=== PATIENT | female | born 1950 | race Caucasian/White ===

== ENCOUNTER → 2017-03-30 | Outpatient (CLI) | payer OTHER ==
[~2017-03-30] MED LIST: ASCA500 PO; CALC-20 PO; DICL-201 PO; GLUCCAP5 PO; LEVO100T PO; LOSA1TAB38 PO; MAGNTAB4 PO; MULTTAB PO; OMEP40CA PO; VITA400C15 PO
== END | disposition home or self-care (01) ==
LOC: C.PAPS 15:26
PROVIDERS: ATTEND Obstetrics & Gynecology
DX: Z01.419 Encounter for gynecological examination (general) (routine) without abnormal findings (principal)

== ENCOUNTER → 2017-04-04 | Outpatient (CLI) | payer OTHER ==
--- NOTE | 2017-04-05 07:54 | MAMMOGRAPHY REPORT ---
BILATERAL DIGITAL SCREENING MAMMOGRAM WITH CAD: 04/04/2017 CLINICAL HISTORY: Routine screening. Patient has no complaints. TECHNIQUE: Bilateral CC and MLO views were obtained. Current study was also evaluated with a Compute r Aided Detection (CAD) system. COMPARISON: Comparison is made to exams dated: 03/17/2015 mammogram, 04/03/2013 mammogram, 02/02/2011 ma mmogram, 11/18/2009 mammogram - [facility], 11/16/2008, and 08/29/2007. BREAST COMPOSITION: There are scattered areas of fibroglandular density in both breasts. FINDINGS: There are benign-appearing punctate microcalcifications in the left breast, and benign-shante earing coarse calcifications in the right breast. No new suspicious mass, architectural distortion o r cluster of microcalcifications is seen. IMPRESSION: ACR BI-RADS CATEGORY 1: NEGATIVE There is no mammographic evidence of malignancy. A 1 year screening mammogram is recommended. The pa tient will receive written notification of the results. Approximately 10% of breast cancers are not detected with mammography. A negative mammographic report should not delay biopsy if a clinically suggestive mass is present. Clementina Esposito M.D. ay/:04/04/2017 16:51:27 Certified Medical Coder: Jennifer Hager, [facility] letter sent: Normal 1/2 BI-RADS Code: ACR BI-RADS Category 1: Negative
== END | disposition home or self-care (01) ==
LOC: C.MAMM 16:24
PROVIDERS: ATTEND Obstetrics & Gynecology
DX: Z12.31 Encounter for screening mammogram for malignant neoplasm of breast (principal)

== ENCOUNTER 2017-12-24 09:29 | Emergency (ER) | payer OTHER ==
[~2017-12-24] VITALS: Ht 149.9 cm; Wt 80.0 kg
[2017-12-24 09:34] VITALS: TEMP 36.7; Ht 149.9 cm; Wt 80.0 kg
[2017-12-24] MEDS ORDERED: MoRPHine SULFATE 4 MG/ML 1 ML CARP\\VIAL IV STA (10:08)
[2017-12-24] MEDS ORDERED: SODIUM CHLORIDE 0.9% 1000ML 1,000 ML IV STA (10:08)
[2017-12-24] MEDS ORDERED: ONDANSETRON INJ 2 MG/ML 2 ML VIAL IV STA (10:08)
[2017-12-24] MEDS ORDERED: GLUC15009 PO (10:22)
[2017-12-24] MEDS ORDERED: OMEP-334 PO (10:22)
[2017-12-24] MEDS ORDERED: BNC/20 PO (10:22)
[2017-12-24] MEDS ORDERED: VITA400C28 PO (10:22)
[2017-12-24] MEDS ORDERED: SLWMEC PO (10:22)
[2017-12-24 10:39] LABS: BASO % 0.3 %; BASO ABS # 0.02 K/uL (0-0.2); EOS % 2.2 %; EOS ABS # 0.15 K/uL (0-0.5); HEMATOCRIT 39.9 % (37-47); HEMOGLOBIN 13.1 g/dL (12.0-16.0); IG# 0.01 K/uL (0.00-0.02); LYMPH % 14.3 %; LYMPH ABS # 0.99 K/uL (1.2-3.4); MEAN CELL VOLUME 88.7 fL (80-100); MEAN CORPUSCULAR HEMOGLOBIN 29.1 pg (25-34); MEAN CORPUSCULAR HGB CONC 32.8 g/dl (32-36); MEAN PLATELET VOLUME 8.6 fL (7.4-10.4); MONO % 7.8 %; MONO ABS # 0.54 K/uL (0.11-0.59); NEUT % 75.3 %; PLATELET COUNT 297 K/uL (130-400); RED CELL DISTRIBUTION WIDTH CV 14.8 % (11.5-14.5); RED CELL DISTRIBUTION WIDTH SD 47.7 fL (36.4-46.3); WHITE BLOOD COUNT 6.91 K/uL (4.8-10.8)
--- NOTE | 2017-12-24 10:56 | EMERGENCY ROOM VISIT NOTE ---
History Report prepared by Awa: Kaylin Mays Under the Supervision of: Dr. Tita Sanchez M.D. 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 She states that sitting in the car typically aggravates her back pain. Last night she put a heating pad on her back before bed. She was feeling fine when she went to sleep. The patient states that when she woke up this morning she did not have any pain. She went downstairs and was in the kitchen when she developed a sudden onset of right sided flank pain radiating into her lower back and into her RLQ. She denies any pain radiating into her leg or groin. She felt nauseated and lightheaded with her pain. The patient reports worsening pain in her back with deep inspiration. Her pain is worsened with movement. The patient rates her current pain as an 8/ 10 in severity. The patient denies shortness of breath, urinary symptoms, and pain or swelling in her legs. She denies any history of kidney stones or blood clots. She still has her gallbladder. She has not eaten anything today. 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 A total of 10 systems reviewed and were otherwise negative. Past Medical & Surgical Medical Problems: (1) Acid reflux (2) Arthritis (3) Elbow dislocation (4) Elbow fracture, left (5) HTN (hypertension) Family History Patient reports no known family medical history. Social History Smoking Status: Never Smoker Marital Status: Housing Status: lives with family Current/Historical Medications Scheduled Ascorbic Acid (Vitamin C), 500 MG PO DAILY Calcium Carbonate-Vitamin D (Calcium 600 + D), 1 TABS PO DAILY Diclofenac (Voltaren), 75 MG PO BID Glucosamine Hydrochloride (Glucosamine), 1,500 MG PO DAILY Levothyroxine Sodium (Synthroid), 100 MCG PO DAILY Magnesium Chloride (Slow-Mag Tab), 64 MG PO DAILY Multivitamins/Minerals (Mvi With Minerals), 1 TAB PO DAILY Olmesartan Medoxomil (Benicar), 20 MG PO DAILY Omeprazole (Omeprazole Dr), 40 MG PO QPM Vitamin E (Alph-E), 400 UNITS PO DAILY Scheduled PRN Hydrocodone/Acetaminophen 5MG/325MG (Melcroft 5MG/325MG), 1 TABLET PO Q6 PRN for Pain Allergies Coded Allergies: Benazepril (Verified Allergy, Unknown, UNKNOWN, 12/24/17) CAUSES COUGH Lisinopril (Verified Allergy, Unknown, UNKNOWN, 12/24/17) CAUSES COUGH Sulfa Drugs (Verified Allergy, Unknown, 12/24/17) Physical Exam Vital Signs Date Time Temp Pulse Resp B/P (MAP) Pulse Ox O2 Delivery O2 Flow Rate FiO2 12/24/17 14:43 54 136/74 97 12/24/17 13:24 53 140/67 97 Nasal Cannula 2.0 12/24/17 12:55 95 Nasal Cannula 2.0 12/24/17 12:49 53 12/24/17 12:45 Room Air 12/24/17 12:45 59 126/61 93 Room Air 12/24/17 11:07 59 121/60 93 Room Air 12/24/17 09:34 36.7 67 16 178/89 99 Room Air Physical Exam Vital signs reviewed. General: Well-appearing elderly female, in no significant distress. HEENT: No scleral icterus, PERRLA, neck supple. Atraumatic. Cardiovascular: Regular rate and rhythm, no extra sounds. Pulmonary: Clear to auscultation bilaterally, normal work of breathing. Abdomen: Soft, mild tenderness to palpation to RUQ, obese, non-tender to palpation to the thoracolumbar spine. Mild right CVA tenderness, pain with deep inspiration. Musculoskeletal: Atraumatic, no peripheral edema. Neurologic: Patient awake alert and oriented x 3, full strength in all 4 extremities. Cranial nerves 2 through 12 grossly intact. Skin: Warm, dry, no rash Medical Decision & Procedures ER Provider Diagnostic Interpretation: Radiology results as stated below per my review and radiologist interpretation: CT SCAN OF THE ABDOMEN AND PELVIS WITHOUT CONTRAST CLINICAL HISTORY: R flank pain COMPARISON STUDY: Biliary ultrasound dated 12/24/2017 TECHNIQUE: CT scan of the abdomen and pelvis was performed from the lung bases to the proximal femurs. Images are reviewed in the axial, sagittal, and coronal planes. IV contrast was not administered for this examination. A dose lowering technique was utilized adhering to the principles of ALARA. CT DOSE: 536.73 mGy.cm FINDINGS: Lower chest: There is a moderate hiatal hernia. Liver: The unenhanced liver is normal in size, contour, and attenuation. There is no intrahepatic biliary ductal dilatation. Gallbladder: Unremarkable. Spleen: Normal in size and attenuation. Pancreas: Unremarkable. Adrenal glands: Unremarkable. Kidneys: There is 18 mm right renal hypodensity which slightly exceeds water attenuation and is therefore indeterminate. No renal calculi are visualized. No ureteral or bladder calculi are visualized. Bowel: There are no transition zones indicate bowel obstruction. There is no evidence of acute diverticulitis. By history the appendix is surgically absent. Peritoneum: There is no intraperitoneal free air or abdominal ascites. There is a small fat-containing right inguinal hernia. Vasculature: The abdominal aorta is normal in course and caliber. Adenopathy: None. Pelvic viscera: The bladder, and pelvic viscera are unremarkable. Skeletal structures: No destructive osseous lesions are seen. IMPRESSION: 1. Moderate hiatal hernia 2. No renal, ureteral, or bladder calculi identified 3. No evidence of bowel obstruction. No evidence of free air 4. Fat-containing right inguinal hernia 5. 18 mm right renal hypodensity. This slightly exceeds water attenuation and is therefore indeterminate. Electronically signed by: Arsalan Kaminski M.D. 12/24/2017 12:13 PM Dictated Date/Time: 12/24/2017 12:06 PM BILIARY ULTRASOUND CLINICAL HISTORY: RUQ pain COMPARISON STUDY: No previous studies for comparison. FINDINGS: The pancreas appears normal as visualized. No hepatic masses are visualized. There is no ductal dilatation. The gallbladder appears sonographically normal. The common bile duct measures 2 mm. There is no right-sided hydronephrosis. IMPRESSION: Normal biliary ultrasound. Electronically signed by: Arsalan Kaminsik M.D. 12/24/2017 12:05 PM Dictated Date/Time: 12/24/2017 12:04 PM CHEST ONE VIEW PORTABLE CLINICAL HISTORY: R flank pain w breathing pain. Nausea. COMPARISON STUDY: 08/22/2010 FINDINGS: Mild stable cardia megaly. Fixed hiatal hernia. Lungs are clear. Diaphragms are smooth. IMPRESSION: Fixed hiatal hernia. Study is otherwise negative. The above report was generated using voice recognition software. It may contain grammatical, syntax or spelling errors. Electronically signed by: Musa Ann M.D. 12/24/2017 2:00 PM Dictated Date/Time: 12/24/2017 1:[address] DOSE: HISTORY: radiculopathy right flank, spine recons please TECHNIQUE: Multiaxial CT images of the lumbar spine were performed and reformatted in the sagittal and coronal plane without the use of contrast. A dose lowering technique was utilized adhering to the principles of ALARA. COMPARISON: Abdomen and pelvis CT 12/24/2017. FINDINGS: No fractures. There is 5 mm of anterolisthesis of L4 and L5. Severe disc space narrowing at L4-L5 and L2-L3. Mild disc space narrowing at L3-L4. Moderate facet osteoarthritis within the lower lumbar spine most pronounced at the L4-L5 level. Moderate central canal narrowing at L4-L5. Small Tarlov cysts at S2. Mild levoscoliosis of the lumbar spine. Paraspinal soft tissues are unremarkable. The sacrum is intact. IMPRESSION: 1. No fractures within the lumbar spine. 2. Degenerative changes as described above most pronounced at the L4-L5 level where there is moderate central canal narrowing. 3. Grade I anterolisthesis of L4 on L5. 4. Mild levoscoliosis. Electronically signed by: Chito Noel M.D. 12/24/2017 1:52 PM Dictated Date/Time: 12/24/2017 1:47 PM Laboratory Results 12/24/17 10:26 Red Blood Count 4.50, Mean Corpuscular Volume 88.7, Mean Corpuscular Hemoglobin 29.1, Mean Corpuscular Hemoglobin Concent 32.8, Mean Platelet Volume 8.6, Neutrophils (%) (Auto) 75.3, Lymphocytes (%) (Auto) 14.3, Monocytes (%) (Auto) 7.8, Eosinophils (%) (Auto) 2.2, Basophils (%) (Auto) 0.3, Neutrophils # (Auto) 5.20, Lymphocytes # (Auto) 0.99, Monocytes # (Auto) 0.54, Eosinophils # (Auto) 0.15, Basophils # (Auto) 0.02 12/24/17 10:26 Test 12/24/17 10:26 12/24/17 10:30 12/24/17 11:30 White Blood Count 6.91 K/uL (4.8-10.8) Red Blood Count 4.50 M/uL (4.2-5.4) Hemoglobin 13.1 g/dL (12.0-16.0) Hematocrit 39.9 % (37-47) Mean Corpuscular Volume 88.7 fL (80-100) Mean Corpuscular Hemoglobin 29.1 pg (25-34) Mean Corpuscular Hemoglobin Concent 32.8 g/dl (32-36) Platelet Count 297 K/uL (130-400) Mean Platelet Volume 8.6 fL (7.4-10.4) Neutrophils (%) (Auto) 75.3 % Lymphocytes (%) (Auto) 14.3 % Monocytes (%) (Auto) 7.8 % Eosinophils (%) (Auto) 2.2 % Basophils (%) (Auto) 0.3 % Neutrophils # (Auto) 5.20 K/uL (1.4-6.5) Lymphocytes # (Auto) 0.99 K/uL (1.2-3.4) Monocytes # (Auto) 0.54 K/uL (0.11-0.59) Eosinophils # (Auto) 0.15 K/uL (0-0.5) Basophils # (Auto) 0.02 K/uL (0-0.2) RDW Standard Deviation 47.7 fL (36.4-46.3) RDW Coefficient of Variation 14.8 % (11.5-14.5) Immature Granulocyte % (Auto) 0.1 % Immature Granulocyte # (Auto) 0.01 K/uL (0.00-0.02) Anion Gap 5.0 mmol/L (3-11) Est Creatinine Clear Calc Drug Dose 62.5 ml/min Estimated GFR () 87.7 Estimated GFR (Non- 75.7 BUN/Creatinine Ratio 26.1 (10-20) Calcium Level 8.1 mg/dl (8.5-10.1) Total Bilirubin 0.3 mg/dl (0.2-1) Direct Bilirubin < 0.1 mg/dl (0-0.2) Aspartate Amino Transf (AST/SGOT) 19 U/L (15-37) Alanine Aminotransferase (ALT/SGPT) 38 U/L (12-78) Alkaline Phosphatase 60 U/L (45-117) Total Protein 6.1 gm/dl (6.4-8.2) Albumin 3.4 gm/dl (3.4-5.0) D-Dimer 360 ug/L FEU (0-500) Urine Color YELLOW Urine Appearance CLEAR (CLEAR) Urine pH 6.0 (4.5-7.5) Urine Specific [place] 1.023 (1.000-1.030) Urine Protein NEG (NEG) Urine Glucose (UA) NEG (NEG) Urine Ketones NEG (NEG) Urine Occult Blood NEG (NEG) Urine Nitrite NEG (NEG) Urine Bilirubin NEG (NEG) Urine Urobilinogen NEG (NEG) Urine Leukocyte Esterase MODERATE (NEG) Urine WBC (Auto) 5-10 /hpf (0-5) Urine RBC (Auto) 0-4 /hpf (0-4) Urine Hyaline Casts (Auto) 1-5 /lpf (0-5) Urine Epithelial Cells (Auto) 20-30 /lpf (0-5) Urine Bacteria (Auto) NEG (NEG) Laboratory results per my review. Medications Administered Medications (Trade) Dose Ordered Sig/Ange Route Start Time Stop Time Status Last Admin Dose Admin Morphine Sulfate (MoRPHine SULFATE INJ) 4 mg NOW STAT IV 12/24/17 10:08 12/24/17 10:10 DC 12/24/17 10:28 4 MG Ondansetron HCl (Zofran Inj) 4 mg NOW STAT IV 12/24/17 10:08 12/24/17 10:10 DC 12/24/17 10:28 4 MG Sodium Chloride 1,000 ml @ 999 mls/hr Q1H1M STAT IV 12/24/17 10:08 12/24/17 11:08 DC 12/24/17 10:29 999 MLS/HR Ketorolac Tromethamine (Toradol Inj) 30 mg NOW STAT IV 12/24/17 13:16 12/24/17 13:18 DC 12/24/17 13:23 30 MG ED Course 0959: Past medical records reviewed. The patient was evaluated in room A4B. A complete history and physical examination was performed. 1008: NSS 1000 ml @ 999 mls/hr IV, Zofran 4 mg IV, Morphine sulfate 4 mg IV 1315: I updated the patient. Her pain has improved but still waxes and wanes. 1316: Toradol 30 mg IV 1417: I reassessed the patient at this time. She is feeling better and resting comfortably. I discussed the results and treatment plan with the patient. I answered all pertaining questions that she had. She expressed understanding and verbalized agreement. The patient will be discharged home. Medical Decision Differential diagnosis: Etiologies such as renal colic, appendicitis, diverticulitis, mesenteric ischemia, aortic pathology, infections, inflammatory bowel disease, PUD, biliary pathology, UTI, as well as others were entertained. This patient was evaluated and appeared to be in some discomfort. IV access was obtained and laboratory work was drawn. The patient was placed on the potline monitor and found to be in a normal sinus rhythm. She was given IV morphine and Zofran for her discomfort. IV fluids were initiated. CT scan abdomen and pelvis was performed and reveals no evidence of obstructive uropathy. There is no other acute inflammatory finding of the abdomen or pelvis. Urinalysis was obtained and is negative. Chest x-ray was obtained and is negative, laboratory work including a d-dimer is fairly unrevealing. Ultrasound right upper quadrant was performed and is negative for acute cholecystitis. The patient was reevaluated and continued to complain of significant pain with movement of the right flank. Lumbar spine reconstructions were ordered from the CT scan abdomen and pelvis performed earlier today. This study is read as above, significant for L2-L3 and L4-L5 disc space narrowing. The patient's level would be consistent with the L2-L3 posterior dermatome. At this time I find no other etiology for the patient's pain. She was advised of the findings. She was advised to use ibuprofen every 6 hours as needed for pain with food. She was given a prescription for Melcroft to be used as needed for more severe pain. She will follow-up with her physician for reevaluation and return to the ER for worsening of symptoms or any medical concerns. Medication Reconcilliation Current Medication List: was personally reviewed by me Blood Pressure Screening Patient's blood pressure: Normal blood pressure Impression Primary Impression: Radiculopathy of thoracolumbar region Scribe Attestation The scribe's documentation has been prepared under my direction and personally reviewed by me in its entirety. I confirm that the note above accurately reflects all work, treatment, procedures, and medical decision making performed by me. Departure Information Dispostion Home / Self-Care Prescriptions Hydrocodone/Acetaminophen 5MG/325MG (Melcroft 5MG/325MG) Tab 1 TABLET PO Q6 Y for Pain, #20 TAB Prov: Tita Sanchez M.D. 12/24/17 Referrals No Doctor, Assigned (PCP) Stef Salmon III, M.D. Forms HOME CARE DOCUMENTATION FORM, IMPORTANT VISIT INFORMATION Patient Instructions My [facility] Additional Instructions Diagnosis: Thoracolumbar radiculopathy Ibuprofen 600 mg every 6 hours as needed for pain with food. Melcroft 1 tab every 6 hours as needed for more severe pain. Do not drive or take Tylenol with this medication. Warm compresses and gentle stretching. Contact your primary care physician for follow-up within the next week. Return to the emergency department for increased pain, fevers, change in symptoms or any medical concerns.
[2017-12-24 10:57] LABS: ALBUMIN 3.4 gm/dl (3.4-5.0); ALT/SGPT 38 U/L (12-78); AST/SGOT 19 U/L (15-37); BLOOD UREA NITROGEN 21 mg/dl (7-18); CALCIUM 8.1 mg/dl (8.5-10.1); CARBON DIOXIDE 26 mmol/L (21-32); CREATININE 0.81 mg/dl (0.60-1.20); GLUCOSE 107 mg/dl (70-99); POTASSIUM 4.1 mmol/L (3.5-5.1); SODIUM 142 mmol/L (136-145)
[2017-12-24 11:00] LABS: ALKALINE PHOSPHATASE 60 U/L (45-117); TOTAL PROTEIN 6.1 gm/dl (6.4-8.2)
--- NOTE | 2017-12-24 12:06 | DIAGNOSTIC IMAGING REPORT ---
BILIARY ULTRASOUND CLINICAL HISTORY: RUQ pain COMPARISON STUDY: No previous studies for comparison. FINDINGS: The pancreas appears normal as visualized. No hepatic masses are visualized. There is no ductal dilatation. The gallbladder appears sonographically normal. The common bile duct measures 2 mm. There is no right-sided hydronephrosis. IMPRESSION: Normal biliary ultrasound. Electronically signed by: Arsalan Kaminski M.D. 12/24/2017 12:05 PM Dictated Date/Time: 12/24/2017 12:04 PM
--- NOTE | 2017-12-24 12:14 | DIAGNOSTIC IMAGING REPORT ---
CT SCAN OF THE ABDOMEN AND PELVIS WITHOUT CONTRAST CLINICAL HISTORY: R flank pain COMPARISON STUDY: Biliary ultrasound dated 12/24/2017 TECHNIQUE: CT scan of the abdomen and pelvis was performed from the lung bases to the proximal femurs. Images are reviewed in the axial, sagittal, and coronal planes. IV contrast was not administered for this examination. A dose lowering technique was utilized adhering to the principles of ALARA. CT DOSE: 536.73 mGy.cm FINDINGS: Lower chest: There is a moderate hiatal hernia. Liver: The unenhanced liver is normal in size, contour, and attenuation. There is no intrahepatic biliary ductal dilatation. Gallbladder: Unremarkable. Spleen: Normal in size and attenuation. Pancreas: Unremarkable. Adrenal glands: Unremarkable. Kidneys: There is 18 mm right renal hypodensity which slightly exceeds water attenuation and is therefore indeterminate. No renal calculi are visualized. No ureteral or bladder calculi are visualized. Bowel: There are no transition zones indicate bowel obstruction. There is no evidence of acute diverticulitis. By history the appendix is surgically absent. Peritoneum: There is no intraperitoneal free air or abdominal ascites. There is a small fat-containing right inguinal hernia. Vasculature: The abdominal aorta is normal in course and caliber. Adenopathy: None. Pelvic viscera: The bladder, and pelvic viscera are unremarkable. Skeletal structures: No destructive osseous lesions are seen. IMPRESSION: 1. Moderate hiatal hernia 2. No renal, ureteral, or bladder calculi identified 3. No evidence of bowel obstruction. No evidence of free air 4. Fat-containing right inguinal hernia 5. 18 mm right renal hypodensity. This slightly exceeds water attenuation and is therefore indeterminate. Electronically signed by: Arsalan Kaminski M.D. 12/24/2017 12:13 PM Dictated Date/Time: 12/24/2017 12:06 PM
[2017-12-24 12:55] VITALS: O2SAT 95
[2017-12-24] MEDS ORDERED: KETOROLAC TROMETHAMINE 30 MG/ML VIAL IV STA (13:16)
--- NOTE | 2017-12-24 13:54 | DIAGNOSTIC IMAGING REPORT ---
LUMBAR SPINE CT CT DOSE: HISTORY: radiculopathy right flank, spine recons please TECHNIQUE: Multiaxial CT images of the lumbar spine were performed and reformatted in the sagittal and coronal plane without the use of contrast. A dose lowering technique was utilized adhering to the principles of ALARA. COMPARISON: Abdomen and pelvis CT 12/24/2017. FINDINGS: No fractures. There is 5 mm of anterolisthesis of L4 and L5. Severe disc space narrowing at L4-L5 and L2-L3. Mild disc space narrowing at L3-L4. Moderate facet osteoarthritis within the lower lumbar spine most pronounced at the L4-L5 level. Moderate central canal narrowing at L4-L5. Small Tarlov cysts at S2. Mild levoscoliosis of the lumbar spine. Paraspinal soft tissues are unremarkable. The sacrum is intact. IMPRESSION: 1. No fractures within the lumbar spine. 2. Degenerative changes as described above most pronounced at the L4-L5 level where there is moderate central canal narrowing. 3. Grade I anterolisthesis of L4 on L5. 4. Mild levoscoliosis. Electronically signed by: Chito Noel M.D. 12/24/2017 1:52 PM Dictated Date/Time: 12/24/2017 1:47 PM
--- NOTE | 2017-12-24 14:01 | DIAGNOSTIC IMAGING REPORT ---
CHEST ONE VIEW PORTABLE CLINICAL HISTORY: R flank pain w breathing pain. Nausea. COMPARISON STUDY: 08/22/2010 FINDINGS: Mild stable cardia megaly. Fixed hiatal hernia. Lungs are clear. Diaphragms are smooth. IMPRESSION: Fixed hiatal hernia. Study is otherwise negative. The above report was generated using voice recognition software. It may contain grammatical, syntax or spelling errors. Electronically signed by: Musa Ann M.D. 12/24/2017 2:00 PM Dictated Date/Time: 12/24/2017 1:59 PM
[2017-12-24] MEDS ORDERED: HYDR-5688 PO (14:09)
[2017-12-24 14:43] VITALS: BP 136/74; PULSE 54; O2SAT 97
== END 2017-12-24 14:44 | disposition home or self-care (01) ==
LOC: EDBD 09:29 → C.EDA 09:30
DX: R10.9 Unspecified abdominal pain (principal); M54.15 Radiculopathy, thoracolumbar region; R11.0 Nausea; I10 Essential (primary) hypertension; K21.9 Gastro-esophageal reflux disease without esophagitis; Z79.899 Other long term (current) drug therapy; Z88.8 Allergy status to other drugs, medicaments and biological substances; K44.9 Diaphragmatic hernia without obstruction or gangrene

== ENCOUNTER 2021-11-15 15:07 | Inpatient (IN) ==
--- NOTE | 2021-11-15 15:50 | XRay Report ---
XR chest 1V portable CLINICAL HISTORY: SOB. COMPARISON STUDY: 12/24/2017 TECHNIQUE: 1 view of the chest FINDINGS: Single frontal view of the chest demonstrates the cardiomediastinal silhouette to be within normal li mits. The lungs are clear of alveolar opacities. There is no evidence for pleural effusion. There is no evidence for vascular congestion. There is no acute osseous pathology. IMPRESSION: 1. No acute cardiopulmonary disease. ACT 112: Negative or not required by law. Electronically signed by: Luis M Harley M.D. 11/15/2021 3:49 PM
--- NOTE | 2021-11-15 15:57 | Electrocardiogram Report ---
Test Reason : Blood Pressure : / mmHG Vent. Rate : 086 BPM Atrial Rate : 086 BPM P-R Int : 174 ms QRS Dur : 088 ms QT Int : 362 ms P-R-T Axes : 033 037 029 degrees QTc Int : 433 ms Normal sinus rhythm Normal ECG When compared with ECG of 22-AUG-2010 17:29, No significant change was found Confirmed by Kareem Johnson ([id number]) on 11/15/2021 3:57:28 PM Referred By: Confirmed By:Kareem Johnson
[2021-11-15] MEDS ORDERED: SODIUM CHLORIDE 0.9% 500 ML IV ONE (16:01)
[2021-11-15 16:27] LABS: Basophils # (auto) 0.05 K/uL (0-0.2); Basophils % (auto) 0.8 %; Eosinophils # (auto) 0.18 K/uL (0-0.5); Eosinophils % (auto) 2.7 %; Hemoglobin 7.1 g/dL (12.0-16.0); Immature Granulocytes # (auto) 0.02 K/uL (0.00-0.02); Immature Granulocytes % (auto) 0.3 %; Lymphocytes # (auto) 1.53 K/uL (1.2-3.4); Lymphocytes % (auto) 23.2 %; Mean Corpuscular Hemoglobin 21.1 pg (25-34); Mean Corpuscular Hgb Conc 29.6 g/dL (32-36); Mean Corpuscular Volume 71.2 fL (80-100); Mean Platelet Volume 7.8 fL (7.4-10.4); Monocytes % (auto) 10.6 %; Neutrophils # (auto) 4.12 K/uL (1.4-6.5); Neutrophils % (auto) 62.4 %; Platelet Count 730 K/uL (130-400); RDW Coefficient of Variation 17.5 % (11.5-14.5); RDW Standard Deviation 45.6 fL (36.4-46.3); Red Blood Count 3.37 M/uL (4.2-5.4); Reticulocyte % 1.8 % (0.5-2.0); Reticulocytes # 0.06 10^6/uL (0.02-0.10)
[2021-11-15 16:35] LABS: Partial Thromboplastin Ratio 0.8; Partial Thromboplastin Time 21.9 Seconds (21.0-31.0); Prothrombin Time 10.3 Seconds (9.0-12.0)
[2021-11-15 16:45] LABS: Hypochromasia Present; Polychromasia 1+
[2021-11-15 16:49] LABS: Alanine Aminotransferase 26 U/L (7-52); Albumin Globulin Ratio 1.8 (0.9-2); Albumin Level 4.3 gm/dl (3.4-5.0); Alkaline Phosphatase 47 U/L (34-104); Anion Gap 6 (3-11); Aspartate Aminotransferase 21 U/L (13-39); BUN Creatinine Ratio 19.7 (10-20); Bilirubin,Total 0.4 mg/dl (0.2-1.0); Blood Urea Nitrogen 23 mg/dl (6-23); Calcium 8.7 mg/dl (8.5-10.1); Carbon Dioxide 26 mmol/L (21-32); Chloride 105 mmol/L (98-107); Creatinine Clr Calc Pharmacy 40.7 ml/min; Est GFR (African American) 54.7 ml/min; Est GFR (Non-African American) 47.2 ml/min; Globulin 2.4 gm/dl (2.5-4.0); Glucose 82 mg/dl (70-99(Fasting)); Magnesium 2.2 mg/dl (1.7-2.4); Phosphorus 3.8 mg/dl (2.5-4.9); Potassium 4.3 mmol/L (3.5-5.1); Sodium 137 mmol/L (136-145); Total Protein 6.7 gm/dl (6.0-8.3); Troponin I < 0.03 ng/ml (0-0.04)
[2021-11-15 17:08] LABS: Ferritin 2.8 ng/ml (8-388)
[2021-11-15] MEDS ORDERED: OPTIRAY 320 100ml IV ONE (18:12)
--- NOTE | 2021-11-15 18:40 | CT Scan Report ---
CT abd pelvis IV con only CLINICAL HISTORY: Left-sided abdominal pain. Anemia. Question GI bleed. COMPARISON STUDY: 12/24/2017 CT DOSE: 658.81 mGy.cm TECHNIQUE: Standard CT of the Abdomen and Pelvis was performed with IV contrast. A dose lowering megan hnique was utilized adhering to the principles of ALARA. Contrast Volume: Optiray 320, 95 ml. The patient did not receive oral contrast. FINDINGS: Lung base: The lung bases are clear. Abdominal cavity: There is no evidence for abdominal mass, adenopathy or ascites. There is again a ri ght inguinal hernia containing peritoneal fat with no bowel loop herniation. Liver: There is homogeneous attenuation of the liver parenchyma. There is no evidence for enhancing m ass lesion. Spleen: There is homogeneous attenuation of the splenic parenchyma. There is no enhancing mass lesion . Pancreas: There is homogeneous attenuation of the pancreatic parenchyma. There is no evidence for mas s lesion or peripancreatic fluid collection. Gall Bladder: The gallbladder is well distended with no evidence for intraluminal calculi, wall thick ening or pericholecystic edema. Adrenal glands: The adrenal glands are normal in size and attenuation. There is no evidence for enhan cing mass lesion. Kidneys: There is homogeneous attenuation of the renal parenchyma bilaterally. There is no evidence f or renal calculus or hydronephrosis. There is no evidence for enhancing mass. Bowel: There is a moderately large hiatal hernia. The bowel loops are normally placed within the abdo men and pelvis without evidence for dilatation or obstruction. There is no evidence for mass lesion. There is minimal sigmoid diverticulosis without evidence for diverticulitis. There are no inflammator y changes present. There is no evidence for free air. The appendix is not visualized. Bladder: The bladder is contracted on this study and cannot be evaluated. : There is no evidence for pelvic mass or adenopathy. There is no evidence for pelvic ascites. Vasculature: There is no evidence for aneurysmal dilatation of the abdominal aorta. Osseous structures: There is no acute osseous pathology. Degenerative changes are seen within the spi ne. IMPRESSION: 1. No acute intra-abdominal or pelvic abnormality. 2. Moderately large hiatal hernia. 3. Mild sigmoid diverticulosis without evidence for diverticulitis. 4. Additional nonacute findings are delineated above. ACT 112: Negative or not required by law. Electronically signed by: Luis M Harley M.D. 11/15/2021 6:39 PM
--- NOTE | 2021-11-15 21:12 | Emergency Department Note ---
Impression & Plan Symptomatic anemia, Iron deficiency, Dyspnea on minimal exertion ED Provider Note NAME: DANIEL KIMBALL AGE: 71 SEX: F ARRIVES VIA: Walk-In INFORMANT: Patient ED PROVIDER(S): Julius Espinal MD CHIEF COMPLAINT: Anemia, SOB, referred. PLAN: Disposition: Admit MEDICAL DECISION MAKING: The patient is a pleasant 71-year-old woman who presents to the emergency department referred by her PCPs office for evaluation of anemia in the setting of having symptoms of shortness of breath for the past several weeks which worsened this past week. She was seen by her doctor's office earlier in the week for the symptoms and had blood work that showed a hemoglobin of 7.3. The patient reports she was seen in follow-up today yesterday and it showed her hemoglobin was 7.0 and was referred to the emergency department. She reports that there was a suspicion that she may have occult GI bleeding and a endoscopy and colonoscopy have been ordered. She reports she does not have any black stool or blood in her stool. She reports she does take diclofenac but has never had any GI upset her abdominal pain. On arrival the patient is fatigued appearing with mild pallor but otherwise no acute distress, afebrile stable vital signs. EKG without overt acute ischemia. Chest x-ray negative for acute cardiopulmonary process. WBC within normal limits. H/H 7.10/03 recently stable/unchanged. Platelets 730K, nonspecific. Chemistry without metabolic acidosis. Electrolytes without significant abnormality. LFTs unremarkable. Troponin negative/undetectable. TSH within normal limits. Iron studies suggest iron deficiency with iron of 10 and ferritin of 2.8. Covid-19 RNA, NAAT negative. CT of the abdomen pelvis was performed and was negative for acute process. Note is made of incidental moderate sized hiatal hernia. Suspect patient's symptoms are due to iron deficiency anemia. However occult GI bleed cannot be completely excluded at this time. Given her hemoglobin is greater than 7 will defer decision for transfusion to admitting team versus iron infusion. Patient agrees with plan for admission. Case was discussed with Dr. Ta, [facility] hospitalist, who will evaluate the patient for admission. Triage Nursing notes reviewed and agree them. Prior medical records reviewed Vital Signs: reviewed and remarkable for no significant abnormalities Differential diagnosis: Reactive airway disease, pneumonia, pneumothorax, COPD, CHF, infections, cardiac ischemia, pulmonary embolism, musculoskeletal, gastrointestinal, as well as other pathologies. ER treatment provided: See below. Diagnostics interpreted by me: ECG: Normal sinus rhythm, 86 bpm, no ectopy, no overt ST elevation or depression, QTC 433, QRS 88 Cardiac Monitoring: An order for continuous cardiac monitoring was placed and demonstrated sinus rhythm, 86 bpm, no ectopy. Laboratory studies: See below Imaging studies: See below Consultation(s): Case was discussed with Dr. Ta, [facility] hospitalist, who will evaluate the patient for admission. HPI: The patient is a pleasant 71-year-old woman who presents to the emergency department referred by her PCPs office for evaluation of anemia in the setting of having symptoms of shortness of breath for the past several weeks which worsened this past week. She was seen by her doctor's office earlier in the week for the symptoms and had blood work that showed a hemoglobin of 7.3. The patient reports she was seen in follow-up today yesterday and it showed her hemoglobin was 7.0 and was referred to the emergency department. She reports that there was a suspicion that she may have occult GI bleeding and a endoscopy and colonoscopy have been ordered. She reports she does not have any black stool or blood in her stool. She reports she does take diclofenac but has never had any GI upset her abdominal pain. ROS: See above HPI for pertinent positives & negatives. A total of 10 systems reviewed and were otherwise negative. VITALS:See Below PHYSICAL EXAMINATION: GENERAL: Awake, alert, fatigued-appearing, in no distress HENT: Normocephalic, atraumatic. Oropharynx with dry mucous membranes and otherwise unremarkable. EYES: Normal conjunctiva. Sclera non-icteric. NECK: Supple. No nuchal rigidity. FROM. No JVD. RESPIRATORY: Clear to auscultation. CARDIAC: Regular rate, normal rhythm. Extremities warm and well perfused. Pulses equal. ABDOMEN: Soft, non-distended. No tenderness to palpation. No rebound or guarding. No masses. RECTAL: Deferred. MUSCULOSKELETAL: Chest examination reveals no tenderness. The back is sym metrical on inspection without obvious abnormality. There is no CVA tenderness to palpation. No joint edema. LOWER EXTREMITIES: Calves are equal size bilaterally and non-tender. No edema. No discoloration. NEURO: Normal sensorium. No sensory or motor deficits noted. SKIN: Mild pallor. No rash or jaundice noted. Julius Espinal MD Past Med/Surg History Medical History Acid reflux Arthritis HTN (hypertension) Surgical History History of Surgically induced by D&E History of amputation of hallux Hallux valgus (bunion) correction History of ankle surgery History of appendectomy History of tonsillectomy Family History Grandmother (Paternal) Colorectal cancer Grandfather (Maternal) Colorectal cancer Grandmother (Maternal) Diabetes Mother Hypertension Stroke syndrome Sister Breast cancer two sisters Denies family history of Ovarian cancer Prostate cancer Social History Smoking Status: Never smoker Feels Safe at Home: Yes Allergies Allergies Allergy/AdvReac Type Severity Reaction Status Date / Time Sulfa (Sulfonamide Allergy Intermediate Rash Verified 11/15/21 18:41 Antibiotics) benazepril AdvReac Intermediate Cough Verified 11/15/21 18:41 lisinopril AdvReac Intermediate Cough Verified 11/15/21 18:41 Home Meds Home Medications Medication Instructions Recorded Confirmed amlodipine 10 mg tablet 10 mg PO HS 05/25/21 11/15/21 ascorbate calcium (vitamin C) 500 500 mg PO QDL 05/25/21 11/15/21 mg tablet cholecalciferol (vitamin D3) 50 50 mcg PO QDL 05/25/21 11/15/21 mcg (2,000 unit) capsule cyanocobalamin (vitamin B-12) 2,000 mcg PO QDL 05/25/21 11/15/21 2,000 mcg tablet,extended release (Vitamin B-12 ER) diclofenac sodium 75 mg 75 mg PO BID 05/25/21 11/15/21 tablet,delayed release glucosamine sulfate 500 mg tablet 500 mg PO BID 05/25/21 11/15/21 (Glucosamine) levothyroxine 100 mcg tablet 100 mcg PO DAILY 05/25/21 11/15/21 (Synthroid) multivitamin (Daily Multi-Vitamin) 1 tab PO QDL 05/25/21 11/15/21 olmesartan 20 mg tablet (Benicar) 20 mg PO HS 05/25/21 11/15/21 omeprazole 40 mg capsule,delayed 40 mg PO HS 05/25/21 11/15/21 release rosuvastatin 10 mg tablet 10 mg PO 3XWK 05/25/21 11/15/21 calcium carbonate 600 mg calcium 600 mg PO QDL 11/15/21 11/15/21 (1,500 mg) tablet (Calcium) magnesium oxide 400 mg PO QDL 11/15/21 11/15/21 vitamin E 400 unit capsule 400 unit PO QDL 11/15/21 11/15/21 Results & Data (ED) Vital Signs Vital Signs - 24 hr 11/15/21 15:12 11/15/21 17:40 11/15/21 20:00 Temperature 36.8 C Temperature Source Temporal Artery Scan Pulse Rate 95 H 80 87 Pulse Rate from SpO2 Sensor 80 85 Respiratory Rate 20 22 19 Respiratory Effort / Characteristics Blood Pressure 145/74 H 143/99 H 146/80 H Blood Pressure Mean 97 113 102 Blood Pressure Position Sitting Pulse Oximetry 96 98 98 Oxygen Delivery Method Room Air Room Air Oxygen Flow Rate Sepsis Recent Fever Within 48 Hours No Sepsis New/Unexplained Change in Mental Status No Sepsis Action Taken by Nursing No Action Required 11/15/21 20:06 11/15/21 21:36 Temperature Temperature Source Pulse Rate Pulse Rate from SpO2 Sensor Respiratory Rate 18 Respiratory Effort / Characteristics Non-Labored Blood Pressure Blood Pressure Mean Blood Pressure Position Pulse Oximetry 97 94 Oxygen Delivery Method Room Air Room Air Oxygen Flow Rate 0 0 Sepsis Recent Fever Within 48 Hours Sepsis New/Unexplained Change in Mental Status Sepsis Action Taken by Nursing Laboratory Data Attestation: I reviewed the patient's lab results. Result diagrams: 11/15/21 16:07 11/15/21 16:07 Lab Results 11/15/21 11/15/21 11/15/21 Range/Units 16:05 16:07 16:07 WBC 6.60 (4.8-10.8) K/uL RBC 3.37 L (4.2-5.4) M/uL Hgb 7.1 L (12.0-16.0) g/dL Hct 24.0 L (37-47) % MCV 71.2 L (80-100) fL MCH 21.1 L (25-34) pg MCHC 29.6 L (32-36) g/dL RDW Std Deviation 45.6 (36.4-46.3) fL RDW Coeff of Best 17.5 H (11.5-14.5) % Plt Count 730 H (130-400) K/uL MPV 7.8 (7.4-10.4) fL Immature Gran % (Auto) 0.3 % Neut % (Auto) 62.4 % Lymph % (Auto) 23.2 % [place] % (Auto) 10.6 % Eos % (Auto) 2.7 % Baso % (Auto) 0.8 % Reticulocyte % (Auto) 1.8 (0.5-2.0) % Neut # (Auto) 4.12 (1.4-6.5) K/uL Lymph # (Auto) 1.53 (1.2-3.4) K/uL [place] # (Auto) 0.70 H (0.11-0.59) K/uL Eos # (Auto) 0.18 (0-0.5) K/uL Baso # (Auto) 0.05 (0-0.2) K/uL Reticulocyte # 0.06 (0.02-0.10) 10^6/uL Immature Gran # (Auto) 0.02 (0.00-0.02) K/uL Polychromasia 1+ Hypochromasia Present PT 10.3 (9.0-12.0) Seconds INR 1.0 (0.9-1.1) APTT 21.9 (21.0-31.0) Seconds PTT Ratio 0.8 Sodium (136-145) mmol/L Potassium (3.5-5.1) mmol/L Chloride (98-107) mmol/L Carbon Dioxide (21-32) mmol/L Anion Gap (3-11) BUN (6-23) mg/dl Creatinine (0.6-1.2) mg/dl Est Cr Clr Drug Dosing ml/min Est GFR ( Amer) ml/min Est GFR (Non-Af Amer) ml/min BUN/Creatinine Ratio (10-20) Glucose (70-99(Fasting)) mg/dl Calcium (8.5-10.1) mg/dl Phosphorus (2.5-4.9) mg/dl Magnesium (1.7-2.4) mg/dl Iron (35-150) mcg/dl Transferrin (200-360) mg/dl Ferritin (8-388) ng/ml Total Bilirubin (0.2-1.0) mg/dl AST (13-39) U/L ALT (7-52) U/L Alkaline Phosphatase (34-104) U/L Troponin I (0-0.04) ng/ml Total Protein (6.0-8.3) gm/dl Albumin (3.4-5.0) gm/dl Globulin (2.5-4.0) gm/dl Albumin/Globulin Ratio (0.9-2) TSH (0.300-4.500) uIu/ml SARS-CoV-2, RNA, NAAT NEGATIVE (NEGATIVE) Blood Type Antibody Screen 11/15/21 11/15/21 11/15/21 Range/Units 16:07 16:07 16:07 WBC (4.8-10.8) K/uL RBC (4.2-5.4) M/uL Hgb (12.0-16.0) g/dL Hct (37-47) % MCV (80-100) fL MCH (25-34) pg MCHC (32-36) g/dL RDW Std Deviation (36.4-46.3) fL RDW Coeff of Best (11.5-14.5) % Plt Count (130-400) K/uL MPV (7.4-10.4) fL Immature Gran % (Auto) % Neut % (Auto) % Lymph % (Auto) % [place] % (Auto) % Eos % (Auto) % Baso % (Auto) % Reticulocyte % (Auto) (0.5-2.0) % Neut # (Auto) (1.4-6.5) K/uL Lymph # (Auto) (1.2-3.4) K/uL [place] # (Auto) (0.11-0.59) K/uL Eos # (Auto) (0-0.5) K/uL Baso # (Auto) (0-0.2) K/uL Reticulocyte # (0.02-0.10) 10^6/uL Immature Gran # (Auto) (0.00-0.02) K/uL Polychromasia Hypochromasia PT (9.0-12.0) Seconds INR (0.9-1.1) APTT (21.0-31.0) Seconds PTT Ratio Sodium 137 (136-145) mmol/L Potassium 4.3 (3.5-5.1) mmol/L Chloride 105 (98-107) mmol/L Carbon Dioxide 26 (21-32) mmol/L Anion Gap 6 (3-11) BUN 23 (6-23) mg/dl Creatinine 1.17 (0.6-1.2) mg/dl Est Cr Clr Drug Dosing 40.7 ml/min Est GFR ( Amer) 54.7 ml/min Est GFR (Non-Af Amer) 47.2 ml/min BUN/Creatinine Ratio 19.7 (10-20) Glucose 82 (70-99(Fasting)) mg/dl Calcium 8.7 (8.5-10.1) mg/dl Phosphorus 3.8 (2.5-4.9) mg/dl Magnesium 2.2 (1.7-2.4) mg/dl Iron (35-150) mcg/dl Transferrin (200-360) mg/dl Ferritin (8-388) ng/ml Total Bilirubin 0.4 (0.2-1.0) mg/dl AST 21 (13-39) U/L ALT 26 (7-52) U/L Alkaline Phosphatase 47 (34-104) U/L Troponin I < 0.03 (0-0.04) ng/ml Total Protein 6.7 (6.0-8.3) gm/dl Albumin 4.3 (3.4-5.0) gm/dl Globulin 2.4 L (2.5-4.0) gm/dl Albumin/Globulin Ratio 1.8 (0.9-2) TSH 1.154 (0.300-4.500) uIu/ml SARS-CoV-2, RNA, NAAT (NEGATIVE) Blood Type O Positive Antibody Screen NEGATIVE 11/15/21 Range/Units 16:07 WBC (4.8-10.8) K/uL RBC (4.2-5.4) M/uL Hgb (12.0-16.0) g/dL Hct (37-47) % MCV (80-100) fL MCH (25-34) pg MCHC (32-36) g/dL RDW Std Deviation (36.4-46.3) fL RDW Coeff of Best (11.5-14.5) % Plt Count (130-400) K/uL MPV (7.4-10.4) fL Immature Gran % (Auto) % Neut % (Auto) % Lymph % (Auto) % [place] % (Auto) % Eos % (Auto) % Baso % (Auto) % Reticulocyte % (Auto) (0.5-2.0) % Neut # (Auto) (1.4-6.5) K/uL Lymph # (Auto) (1.2-3.4) K/uL [place] # (Auto) (0.11-0.59) K/uL Eos # (Auto) (0-0.5) K/uL Baso # (Auto) (0-0.2) K/uL Reticulocyte # (0.02-0.10) 10^6/uL Immature Gran # (Auto) (0.00-0.02) K/uL Polychromasia Hypochromasia PT (9.0-12.0) Seconds INR (0.9-1.1) APTT (21.0-31.0) Seconds PTT Ratio Sodium (136-145) mmol/L Potassium (3.5-5.1) mmol/L Chloride (98-107) mmol/L Carbon Dioxide (21-32) mmol/L Anion Gap (3-11) BUN (6-23) mg/dl Creatinine (0.6-1.2) mg/dl Est Cr Clr Drug Dosing ml/min Est GFR ( Amer) ml/min Est GFR (Non-Af Amer) ml/min BUN/Creatinine Ratio (10-20) Glucose (70-99(Fasting)) mg/dl Calcium (8.5-10.1) mg/dl Phosphorus (2.5-4.9) mg/dl Magnesium (1.7-2.4) mg/dl Iron 10 L (35-150) mcg/dl Transferrin 413 H (200-360) mg/dl Ferritin 2.8 L (8-388) ng/ml Total Bilirubin (0.2-1.0) mg/dl AST (13-39) U/L ALT (7-52) U/L Alkaline Phosphatase (34-104) U/L Troponin I (0-0.04) ng/ml Total Protein (6.0-8.3) gm/dl Albumin (3.4-5.0) gm/dl Globulin (2.5-4.0) gm/dl Albumin/Globulin Ratio (0.9-2) TSH (0.300-4.500) uIu/ml SARS-CoV-2, RNA, NAAT (NEGATIVE) Blood Type Antibody Screen Administered Medications Discontinued Medications Sodium Chloride (Nss) 500 mls @ 999 mls/hr IV .Q31M ONE Stop: 11/15/21 16:31 Last Infusion: 11/15/21 16:42 Dose: 0 mls/hr Documented by: [id number] Admin: 11/15/21 16:11 Dose: 999 mls/hr Documented by: [id number] Ioversol (Optiray 320 100ml) 95 ml IV ONCE ONE Stop: 11/15/21 18:13 Last Admin: 11/15/21 18:13 Dose: 95 ml Documented by: [id number] Imaging Data Radiologist's Impression: Chest X-Ray 11/15/21 15:15 XR chest 1V portable CLINICAL HISTORY: SOB. COMPARISON STUDY: 12/24/2017 TECHNIQUE: 1 view of the chest FINDINGS: Single frontal view of the chest demonstrates the cardiomediastinal silhouette to be within normal limits. The lungs are clear of alveolar opacities. There is no evidence for pleural effusion. There is no evidence for vascular congestion. There is no acute osseous pathology. IMPRESSION: 1. No acute cardiopulmonary disease. ACT 112: Negative or not required by law. Electronically signed by: Luis M Harley M.D. 11/15/2021 3:49 PM Abdomen/Pelvis CT 11/15/21 15:58 CT abd pelvis IV con only CLINICAL HISTORY: Left-sided abdominal pain. Anemia. Question GI bleed. COMPARISON STUDY: 12/24/2017 CT DOSE: 658.81 mGy.cm TECHNIQUE: Standard CT of the Abdomen and Pelvis was performed with IV contrast. A dose lowering technique was utilized adhering to the principles of ALARA. Contrast Volume: Optiray 320, 95 ml. The patient did not receive oral contrast. FINDINGS: Lung base: The lung bases are clear. Abdominal cavity: There is no evidence for abdominal mass, adenopathy or ascites. There is again a right inguinal hernia containing peritoneal fat with no bowel loop herniation. Liver: There is homogeneous attenuation of the liver parenchyma. There is no evidence for enhancing mass lesion. Spleen: There is homogeneous attenuation of the splenic parenchyma. There is no enhancing mass lesion. Pancreas: There is homogeneous attenuation of the pancreatic parenchyma. There is no evidence for mass lesion or peripancreatic fluid collection. Gall Bladder: The gallbladder is well distended with no evidence for intralumina l calculi, wall thickening or pericholecystic edema. Adrenal glands: The adrenal glands are normal in size and attenuation. There is no evidence for enhancing mass lesion. Kidneys: There is homogeneous attenuation of the renal parenchyma bilaterally. There is no evidence for renal calculus or hydronephrosis. There is no evidence for enhancing mass. Bowel: There is a moderately large hiatal hernia. The bowel loops are normally placed within the abdomen and pelvis without evidence for dilatation or obstruction. There is no evidence for mass lesion. There is minimal sigmoid diverticulosis without evidence for diverticulitis. There are no inflammatory changes present. There is no evidence for free air. The appendix is not visualized. Bladder: The bladder is contracted on this study and cannot be evaluated. : There is no evidence for pelvic mass or adenopathy. There is no evidence for pelvic ascites. Vasculature: There is no evidence for aneurysmal dilatation of the abdominal aorta. Osseous structures: There is no acute osseous pathology. Degenerative changes are seen within the spine. IMPRESSION: 1. No acute intra-abdominal or pelvic abnormality. 2. Moderately large hiatal hernia. 3. Mild sigmoid diverticulosis without evidence for diverticulitis. 4. Additional nonacute findings are delineated above. ACT 112: Negative or not required by law. Electronically signed by: Luis M Harley M.D. 11/15/2021 6:39 PM Discharge Plan Visit Data Chief Complaint: Shortness of Breath/Dyspnea Stated Complaint: SOB, WEAKNESS, L SIDE BACK PAIN ED Provider: Julius Espinal Discharge Problem: Symptomatic anemia, Iron deficiency, Dyspnea on minimal exertion Forms Stand Alone Forms: My [employer] Prescriptions Prescriptions: No Action levothyroxine [Synthroid] 100 mcg tablet 100 mcg PO DAILY RF: 0 diclofenac sodium 75 mg tablet,delayed release (DR/EC) 75 mg PO BID RF: 0 omeprazole 40 mg capsule,delayed release(DR/EC) 40 mg PO HS RF: 0 amlodipine 10 mg tablet 10 mg PO HS RF: 0 olmesartan [Benicar] 20 mg tablet 20 mg PO HS RF: 0 rosuvastatin 10 mg tablet 10 mg PO 3XWK RF: 0 ascorbate calcium (vitamin C) 500 mg tablet 500 mg PO QDL RF: 0 multivitamin [Daily Multi-Vitamin] Tablet 1 tab PO QDL RF: 0 cyanocobalamin (vitamin B-12) [Vitamin B-12] 2,000 mcg tablet extended release 2,000 mcg PO QDL RF: 0 cholecalciferol (vitamin D3) 50 mcg (2,000 unit) capsule 50 mcg PO QDL RF: 0 glucosamine sulfate [Glucosamine] 500 mg tablet 500 mg PO BID RF: 0 calcium carbonate [Calcium 600] 600 mg calcium (1,500 mg) Tablet 600 mg PO QDL RF: 0 vitamin E 400 unit Capsule 400 unit PO QDL RF: 0 magnesium oxide 400 mg magnesium Tablet 400 mg PO QDL RF: 0 Referrals Referrals: Stef Salmon MD [Primary Care Provider] -
--- NOTE | 2021-11-15 23:51 | History and Physical Report ---
DATE OF ADMISSION: 11/15/2021. CHIEF COMPLAINT: Shortness of breath. HISTORY OF PRESENT ILLNESS: A 71-year-old female with past medical history significant for acquired hypothyroidism, prediabetes, hypertension, peripheral vascular disease, obesity, GERD, history of colon polyps, who presents with shortness of breath. She went to PCP on 11/08/2021 with shortness of breath and labs were done, which showed severe microcytic hypochromic anemia with hemoglobin of 7.3, seems to be her chest x-ray showed large hiatal hernia. EKG was okay. Thyroid tests and BNP were okay and she was scheduled for EGD and colonoscopy on 11/21/2021. Last colonoscopy showed 4-mm colon polyp, internal hemorrhoids and sigmoid diverticulosis, but the patient states this shortness of breath has been going on for a few weeks, for the last one week, it got progressively worsened, today she thinks she might have overdid it and she got very short of breath and she went to PCP again and her hemoglobin was 7, so she was advised to come to the ER. Currently, resting comfortably and hemodynamically stable. Whenever she is ambulatory, she gets short of breath with slight dizziness. Denies any headache. No blurred visions. No earache, no runny nose, no sore throat. No cough. Appetite is okay. No difficulty swallowing. No recent weight gain or weight loss. No chest pain. No palpitations. No nausea, no abdominal pain. Normal bowel and bladder movements. Denies any blood in stool or black stools. No hematuria. She thinks she has some mild ankle swelling. ALLERGIES: SULFA ANTIBIOTICS, BENAZEPRIL, AND LISINOPRIL. PAST MEDICAL HISTORY: As mentioned above. PAST SURGICAL HISTORY: induced by D and E, bunion correction, colonoscopies, dental surgery, appendectomy, tonsillectomy, vulva gland lesion removal, repair of hammertoe, repair of rectocele. MEDICATIONS: The patient is on amlodipine 10 mg p.o. at bedtime, vitamin C 500 mg p.o. daily, calcium carbonate 600 mg p.o. daily, vitamin D 50 mcg p.o. daily, vitamin B12 of 2000 mcg daily, diclofenac sodium 75 mg p.o. b.i.d., glucosamine 500 mg p.o. b.i.d., levothyroxine 100 mcg p.o. daily, magnesium oxide 400 mg p.o. daily, multivitamin 1 tablet p.o. daily, olmesartan 20 mg p.o. at bedtime, omeprazole 40 mg p.o. at bedtime, lovastatin 20 mg p.o. 3 times a day, vitamin E 400 units p.o. daily. FAMILY HISTORY: Significant for father has dementia, hypertension, stroke; mother had stroke, diabetes, CHF. Maternal grandfather had colon cancer, paternal grandmother has colon cancer, sister has breast cancer. SOCIAL HISTORY: . No smoking. Alcohol occasional. No drug use. REVIEW OF SYSTEMS: As per HPI. Rest of the review of systems is negative. PHYSICAL EXAMINATION: GENERAL: The patient is obese, not in acute distress. VITAL SIGNS: Temperature 36.8, pulse 87, respiratory rate 18, blood pressure 146/80, oxygen 94% on nasal cannula. HEENT: No pallor. No icterus. Pupils equal, round and reactive to light. Oral mucosa moist. NECK: No JVD, no neck masses. CARDIOVASCULAR: S1 and S2 heard. Regular rate and rhythm. No murmur, no gallop. RESPIRATORY SYSTEM: Normal AP diameter. No accessory muscle use. No wheezing, no crackles. ABDOMEN: Soft, bowel sounds present, nontender, no distention. CENTRAL NERVOUS SYSTEM: Cranial nerves II through XII grossly intact, nonfocal. EXTREMITIES: Trace pedal edema, no erythema seen. LABORATORY DATA: WBC 6.6, hemoglobin 7.1, hematocrit 24, platelets 730. PT 10.3, INR 1, APTT 21.9. Sodium 137, potassium 4.3, chloride 105, bicarbonate 26, BUN 23, creatinine 1.1, serum glucose 82, calcium 8.7, phosphorus 3.8, magnesium 2.2. Iron transferrin 413, ferritin 2.8, total bilirubin 0.4, AST 21, ALT 26, alkaline phosphatase 47. Troponin I less than 0.03. TSH 1.1. SARS-CoV-2 rapid test negative. IMAGING DATA: CT of the abdomen and pelvis with IV contrast only shows no acute findings. [id number] hiatal hernia, mild sigmoid diverticulosis without evidence of diverticulitis. Chest x-ray, no acute findings. EKG: Normal sinus rhythm at a rate of 86, no acute ST changes seen. ASSESSMENT AND PLAN: This 71-year-old female presents with shortness of breath. 1. Shortness of breath probably most likely from symptomatic anemia. Hemoglobin is 7.1, iron deficiency could be chronic blood loss. We will check stool for Hemoccult. Place on IV Protonix b.i.d. We will transfuse 1 unit of PRBCs and follow morning labs and keep n.p.o. and consult GI in the a.m. for possible EGD and colonoscopy. We will hold her diclofenac sodium. Shortness of breath and mild lower extremity edema. We will rule out CHF with echocardiogram. Most likely symptoms are from anemia. 2. Prediabetes: Follow Hb A1c levels, insulin sliding scale. Follow the blood sugars. 3. History of hypertension: Continue olmesartan, amlodipine. Monitor the blood pressure. 4. Hyperlipidemia: Continue statin. 5. Hypothyroidism. Continue Synthroid. 6. Morbid obesity: Needs counseling. 7. Deep venous thrombosis prophylaxis: SCDs for now. DISPOSITION: Closely monitor in the medical floor. PT, OT prior to discharge. Social service to help with discharge planning. Job ID: [id number] [facility] CENTERAmaury
[2021-11-15] MEDS ORDERED: FUROSEMIDE INJ 20 MG/2 ML VIAL IV ONE (23:57)
[2021-11-15] MEDS ORDERED: ONDANSETRON INJ 2 MG/ML 2 ML VIAL IV PRN (23:57)
[2021-11-15] MEDS ORDERED: ACETAMINOPHEN 325 MG TAB PO PRN (23:57)
[2021-11-15] MEDS ORDERED: SODIUM CHLORIDE 0.9% 250 ML IV PRN (23:57)
[2021-11-16] MEDS ORDERED: GLUCOSE 40% GEL 15 GM TUBE PO PRN (00:30)
[2021-11-16] MEDS ORDERED: GLUCOSE 10 TABS/TUBE PO PRN (00:30)
[2021-11-16] MEDS ORDERED: CARBOHYDRATES FOR HYPOGLYCEMIA PO PRN (00:30)
[2021-11-16] MEDS ORDERED: GLUCAGON FOR INJ 1 MG VIAL IM PRN (00:30)
[2021-11-16] MEDS ORDERED: DEXTROSE 50% 50 ML SYRINGE IV PRN (00:30)
[2021-11-16] MEDS: PANTOprazole 40 MG in SYRINGE 0 ML IV SCH ×2 (00:51→09:30)
[2021-11-16] MEDS ORDERED: INSULIN ASPART PER UNIT SC SCH (06:00)
[2021-11-16] MEDS: LEVOTHYROXINE SODIUM 100 MCG TABLET PO SCH (06:08)
[2021-11-16 06:17] LABS: Basophils # (auto) 0.05 K/uL (0-0.2); Basophils % (auto) 1.3 %; Eosinophils # (auto) 0.29 K/uL (0-0.5); Eosinophils % (auto) 7.4 %; Hematocrit (blood only) 27.8 % (37-47); Hemoglobin 8.3 g/dL (12.0-16.0); Immature Granulocytes # (auto) 0.01 K/uL (0.00-0.02); Immature Granulocytes % (auto) 0.3 %; Lymphocytes # (auto) 0.93 K/uL (1.2-3.4); Lymphocytes % (auto) 23.8 %; Mean Corpuscular Hemoglobin 22.1 pg (25-34); Mean Corpuscular Hgb Conc 29.9 g/dL (32-36); Mean Corpuscular Volume 74.1 fL (80-100); Monocytes # (auto) 0.49 K/uL (0.11-0.59); Monocytes % (auto) 12.5 %; Neutrophils # (auto) 2.14 K/uL (1.4-6.5); Neutrophils % (auto) 54.7 %; Platelet Count 668 K/uL (130-400); RDW Coefficient of Variation 18.5 % (11.5-14.5); RDW Standard Deviation 50.1 fL (36.4-46.3); Red Blood Count 3.75 M/uL (4.2-5.4); White Blood Count 3.91 K/uL (4.8-10.8)
[2021-11-16 06:42] LABS: Anisocytosis Present; Hypochromasia Present; Microcytosis Present; Target Cells 1+
[2021-11-16 07:01] LABS: BUN Creatinine Ratio 17.3 (10-20); Calcium 8.3 mg/dl (8.5-10.1); Creatinine Clr Calc Pharmacy 58.3 ml/min; Est GFR (African American) 85.3 ml/min; Est GFR (Non-African American) 73.6 ml/min; Magnesium 2.1 mg/dl (1.7-2.4)
[2021-11-16 08:10] LABS: Estimated Average Glucose 126 mg/dl
[2021-11-16] MEDS: ROSUVASTATIN CALCIUM 10 MG TAB PO SCH ×2 (09:30→10:06)
[2021-11-16] MEDS ORDERED: ROSUVASTATIN CALCIUM 5 MG TAB PO SCH (09:50)
--- NOTE | 2021-11-16 09:50 | Gastrointestinal Consultation ---
Date of Consultation November 16, 2021 Assessment & Plan (1) Symptomatic anemia: (2) Iron deficiency: This is a 71-year-old female who presented with symptomatic anemia, shortness of breath over the last few weeks which has been progressive. Found to be anemic as an outpatient and scheduled for bidirectional endoscopy. Symptoms somewhat worsened and and she presented to the hospital. Was transfused 1 unit of blood and hemoglobin increased appropriately to 8.3. She has no GI complaints, including hematochezia, hematemesis or melena. Risk factors for occult GIB include she does take a daily NSAID and has a hiatal hernia raising possibility for Dilan erosion. On exam she's resting comfortably in bed, abd soft, nontender. - We will plan for her to keep appointment on 11/21/2021 for bidirectional endoscopy as an outpatient - Diet as tolerated - Recommend continuing daily PPI - Consider alternatives to NSAIDs for pain relief if possible - Recommend considering starting iron supplementation - Recommend monitoring H&H as OP to ensure appropriate increase Thank you for allowing us to participate in the care of this patient. Please call with any acute changes, questions or concerns. Please see addendum below with additional recommendation from my supervising physician. Supervising Physician Co-Signing Physician Notes I have seen and examined the patient with Roldan Sood PA-C whose note reflects our findings and plan. Patient with anemia which is chronic. No overt s/s of GI bleeding. EGD and colonoscopy as scheduled as outpatient. History of Present Illness Reason for Consultation: iron deficiency anemia Requesting Physician: Dr. Ta Attending Physician: Tony Bearden MD History of Present Illness This is a 71-year-old female with a past medical history of hypothyroidism, HTN, GERD, PVD, arthritis, and others who developed shortness of breath with exertion of the last several weeks. She was seen by PCP and found as an outpatient have a hemoglobin of 7.3, MCV 73, ferritin of 7, T sat of 2%, iron 11. CXR with large hiatal hernia. She was scheduled for bidirectional endoscopy on 11/21/2021. Saw PCP again yesterday for worsening symptoms. Repeat Hgb 7. She was referred to the hospital. On arrival, Hgb 7.1, MCV 71, BUN WNL, normal INR, LFTs, renal function. CTAP with no acute findings, moderately large hiatal hernia. She was transfused 1 unit of blood. Today HGB 8.3, crit 27.8%. HD stable. Today she feels slightly better. Has not been out of bed much. She does take a daily NSAID, diclofenac for arthritis. She also takes a daily PPI and this controls her GERD. She essentially has no GI complaints. Bowels move well, regular, soft and brown. No dysphagia, odynophagia, nausea vomiting, abdominal bloating or pain, cramping, melena or hematochezia, diarrhea, change in bowel habits. Denies chest pain, shortness of breath, leg edema, syncope. Appetite has been normal. No recent weight loss. History of colon polyps, last colonoscopy in 2019. Due for repeat in 2024. She has never had an upper endoscopy. No EtOH, tobacco, AC use. Allergies Allergy/AdvReac Type Severity Reaction Status Date / Time Sulfa (Sulfonamide Allergy Intermediate Rash Verified 11/15/21 18:41 Antibiotics) benazepril AdvReac Intermediate Cough Verified 11/15/21 18:41 lisinopril AdvReac Intermediate Cough Verified 11/15/21 18:41 Home Medications Medication Instructions Recorded Confirmed Type amlodipine 10 mg tablet 10 mg PO HS 05/25/21 11/15/21 History ascorbate calcium (vitamin C) 500 500 mg PO QDL 05/25/21 11/15/21 History mg tablet cholecalciferol (vitamin D3) 50 50 mcg PO QDL 05/25/21 11/15/21 History mcg (2,000 unit) capsule cyanocobalamin (vitamin B-12) 2,000 mcg PO QDL 05/25/21 11/15/21 History 2,000 mcg tablet,extended release (Vitamin B-12 ER) diclofenac sodium 75 mg 75 mg PO BID 05/25/21 11/15/21 History tablet,delayed release glucosamine sulfate 500 mg tablet 500 mg PO BID 05/25/21 11/15/21 History (Glucosamine) levothyroxine 100 mcg tablet 100 mcg PO DAILY 05/25/21 11/15/21 History (Synthroid) multivitamin (Daily Multi-Vitamin) 1 tab PO QDL 05/25/21 11/15/21 History olmesartan 20 mg tablet (Benicar) 20 mg PO HS 05/25/21 11/15/21 History omeprazole 40 mg capsule,delayed 40 mg PO HS 05/25/21 11/15/21 History release rosuvastatin 10 mg tablet 5 mg PO [id number] 05/25/21 11/16/21 History calcium carbonate 600 mg calcium 600 mg PO QDL 11/15/21 11/15/21 History (1,500 mg) tablet (Calcium) magnesium oxide 400 mg PO QDL 11/15/21 11/15/21 History vitamin E 400 unit capsule 400 unit PO QDL 11/15/21 11/15/21 History Patient History Medical History Acid reflux Arthritis HTN (hypertension) Surgical History History of Surgically induced by D&E History of amputation of hallux Hallux valgus (bunion) correction History of ankle surgery History of appendectomy History of tonsillectomy Family History Grandmother (Paternal) Colorectal cancer Grandfather (Maternal) Colorectal cancer Grandmother (Maternal) Diabetes Mother Hypertension Stroke syndrome Sister Breast cancer two sisters Denies family history of Ovarian cancer Prostate cancer Social History Smoking Status: Never smoker Hx Alcohol Use: No Hx Substance Use: No Preferred Language: [place] Communication Ability: Effective [employer] Spanish Teacher Required: No Beliefs That Will Affect Care: Taoist Taoist Beliefs: AMISH Current Living Situation: Spouse Feels Safe at Home: Yes Safety Concerns: Feels Safe At This Time Assistive Devices: Glasses Review of Systems Review of Systems: All systems reviewed & are unremarkable except as noted in HPI & below Physical Exam Constitutional: WD/WN, vitals as above Eyes: PERRL, conjunctivae normal, anicteric sclerae Respiratory: normal respiratory effort, lungs clear to auscultation Cardiovascular: RRR, no murmur, no edema Gastrointestinal (Abdomen): normal bowel sounds, soft, nontender, no hepatosplenomegaly Skin: Somewhat pale, no rashes Psychiatric: A+Ox3, euthymic affect Results & Data ([facility]) Vital Signs (Past 12 Hours) Vital Signs Temp Pulse Pulse Resp BP BP Pulse Ox 11/16/21 09:00 36.6 C 79 18 127/75 95 11/16/21 03:34 36.5 C 75 16 135/76 97 11/16/21 02:45 36.7 C 76 14 114/73 93 11/16/21 02:12 36.7 C 81 16 118/75 93 11/16/21 01:57 36.7 C 80 18 129/71 94 11/16/21 01:38 36.6 C 79 16 147/79 H 96 11/16/21 01:19 135/78 11/15/21 23:30 36.6 C 100 H 16 171/77 H 97 Laboratory Results 11/16/21 11/16/21 11/16/21 Range/Units 05:58 05:21 05:21 WBC (4.8-10.8) K/uL RBC (4.2-5.4) M/uL Hgb (12.0-16.0) g/dL Hct (37-47) % MCV (80-100) fL MCH (25-34) pg MCHC (32-36) g/dL RDW Std Deviation (36.4-46.3) fL RDW Coeff of Best (11.5-14.5) % Plt Count (130-400) K/uL MPV (7.4-10.4) fL Immature Gran % (Auto) % Neut % (Auto) % Lymph % (Auto) % Monroe % (Auto) % Eos % (Auto) % Baso % (Auto) % Reticulocyte % (Auto) (0.5-2.0) % Neut # (Auto) (1.4-6.5) K/uL Lymph # (Auto) (1.2-3.4) K/uL Monroe # (Auto) (0.11-0.59) K/uL Eos # (Auto) (0-0.5) K/uL Baso # (Auto) (0-0.2) K/uL Reticulocyte # (0.02-0.10) 10^6/uL Immature Gran # (Auto) (0.00-0.02) K/uL Polychromasia Hypochromasia Anisocytosis Microcytosis Target Cells PT (9.0-12.0) Seconds INR (0.9-1.1) APTT (21.0-31.0) Seconds PTT Ratio Sodium 139 (136-145) mmol/L Potassium 4.0 (3.5-5.1) mmol/L Chloride 105 (98-107) mmol/L Carbon Dioxide 26 (21-32) mmol/L Anion Gap 8 (3-11) BUN 14 (6-23) mg/dl Creatinine 0.81 D (0.6-1.2) mg/dl Est Cr Clr Drug Dosing 58.3 ml/min Est GFR ( Amer) 85.3 ml/min Est GFR (Non-Af Amer) 73.6 ml/min BUN/Creatinine Ratio 17.3 (10-20) Glucose 94 (70-99(Fasting)) mg/dl POC Glucose 112 H (70-99) mg/dl Estimat Average Glucose 126 mg/dl Hemoglobin A1c 6.0 H (4.5-5.6) % Calcium 8.3 L (8.5-10.1) mg/dl Phosphorus (2.5-4.9) mg/dl Magnesium 2.1 (1.7-2.4) mg/dl Iron (35-150) mcg/dl Transferrin (200-360) mg/dl Ferritin (8-388) ng/ml Total Bilirubin (0.2-1.0) mg/dl AST (13-39) U/L ALT (7-52) U/L Alkaline Phosphatase (34-104) U/L Troponin I (0-0.04) ng/ml Total Protein (6.0-8.3) gm/dl Albumin (3.4-5.0) gm/dl Globulin (2.5-4.0) gm/dl Albumin/Globulin Ratio (0.9-2) TSH (0.300-4.500) uIu/ml SARS-CoV-2, RNA, NAAT (NEGATIVE) Blood Type Blood Type Recheck Antibody Screen Crossmatch 11/16/21 11/16/21 11/15/21 Range/Units 05:21 00:27 23:26 WBC 3.91 L (4.8-10.8) K/uL RBC 3.75 L (4.2-5.4) M/uL Hgb 8.3 L (12.0-16.0) g/dL Hct 27.8 L (37-47) % MCV 74.1 L (80-100) fL MCH 22.1 L (25-34) pg MCHC 29.9 L (32-36) g/dL RDW Std Deviation 50.1 H (36.4-46.3) fL RDW Coeff of Best 18.5 H (11.5-14.5) % Plt Count 668 H (130-400) K/uL MPV 8.0 (7.4-10.4) fL Immature Gran % (Auto) 0.3 % Neut % (Auto) 54.7 % Lymph % (Auto) 23.8 % Monroe % (Auto) 12.5 % Eos % (Auto) 7.4 % Baso % (Auto) 1.3 % Reticulocyte % (Auto) (0.5-2.0) % Neut # (Auto) 2.14 (1.4-6.5) K/uL Lymph # (Auto) 0.93 L (1.2-3.4) K/uL Monroe # (Auto) 0.49 (0.11-0.59) K/uL Eos # (Auto) 0.29 (0-0.5) K/uL Baso # (Auto) 0.05 (0-0.2) K/uL Reticulocyte # (0.02-0.10) 10^6/uL Immature Gran # (Auto) 0.01 (0.00-0.02) K/uL Polychromasia Hypochromasia Present Anisocytosis Present Microcytosis Present Target Cells 1+ PT (9.0-12.0) Seconds INR (0.9-1.1) APTT (21.0-31.0) Seconds PTT Ratio Sodium (136-145) mmol/L Potassium (3.5-5.1) mmol/L Chloride (98-107) mmol/L Carbon Dioxide (21-32) mmol/L Anion Gap (3-11) BUN (6-23) mg/dl Creatinine (0.6-1.2) mg/dl Est Cr Clr Drug Dosing ml/min Est GFR ( Amer) ml/min Est GFR (Non-Af Amer) ml/min BUN/Creatinine Ratio (10-20) Glucose (70-99(Fasting)) mg/dl POC Glucose 104 H (70-99) mg/dl Estimat Average Glucose mg/dl Hemoglobin A1c (4.5-5.6) % Calcium (8.5-10.1) mg/dl Phosphorus (2.5-4.9) mg/dl Magnesium (1.7-2.4) mg/dl Iron (35-150) mcg/dl Transferrin (200-360) mg/dl Ferritin (8-388) ng/ml Total Bilirubin (0.2-1.0) mg/dl AST (13-39) U/L ALT (7-52) U/L Alkaline Phosphatase (34-104) U/L Troponin I (0-0.04) ng/ml Total Protein (6.0-8.3) gm/dl Albumin (3.4-5.0) gm/dl Globulin (2.5-4.0) gm/dl Albumin/Globulin Ratio (0.9-2) TSH (0.300-4.500) uIu/ml SARS-CoV-2, RNA, NAAT (NEGATIVE) Blood Type Blood Type Recheck O Positive Antibody Screen Crossmatch 11/15/21 11/15/21 11/15/21 Range/Units 16:07 16:07 16:07 WBC (4.8-10.8) K/uL RBC (4.2-5.4) M/uL Hgb (12.0-16.0) g/dL Hct (37-47) % MCV (80-100) fL MCH (25-34) pg MCHC (32-36) g/dL RDW Std Deviation (36.4-46.3) fL RDW Coeff of Best (11.5-14.5) % Plt Count (130-400) K/uL MPV (7.4-10.4) fL Immature Gran % (Auto) % Neut % (Auto) % Lymph % (Auto) % Monroe % (Auto) % Eos % (Auto) % Baso % (Auto) % Reticulocyte % (Auto) (0.5-2.0) % Neut # (Auto) (1.4-6.5) K/uL Lymph # (Auto) (1.2-3.4) K/uL Monroe # (Auto) (0.11-0.59) K/uL Eos # (Auto) (0-0.5) K/uL Baso # (Auto) (0-0.2) K/uL Reticulocyte # (0.02-0.10) 10^6/uL Immature Gran # (Auto) (0.00-0.02) K/uL Polychromasia Hypochromasia Anisocytosis Microcytosis Target Cells PT (9.0-12.0) Seconds INR (0.9-1.1) APTT (21.0-31.0) Seconds PTT Ratio Sodium (136-145) mmol/L Potassium (3.5-5.1) mmol/L Chloride (98-107) mmol/L Carbon Dioxide (21-32) mmol/L Anion Gap (3-11) BUN (6-23) mg/dl Creatinine (0.6-1.2) mg/dl Est Cr Clr Drug Dosing ml/min Est GFR ( Amer) ml/min Est GFR (Non-Af Amer) ml/min BUN/Creatinine Ratio (10-20) Glucose (70-99(Fasting)) mg/dl POC Glucose (70-99) mg/dl Estimat Average Glucose mg/dl Hemoglobin A1c (4.5-5.6) % Calcium (8.5-10.1) mg/dl Phosphorus (2.5-4.9) mg/dl Magnesium (1.7-2.4) mg/dl Iron 10 L (35-150) mcg/dl Transferrin 413 H (200-360) mg/dl Ferritin 2.8 L (8-388) ng/ml Total Bilirubin (0.2-1.0) mg/dl AST (13-39) U/L ALT (7-52) U/L Alkaline Phosphatase (34-104) U/L Troponin I (0-0.04) ng/ml Total Protein (6.0-8.3) gm/dl Albumin (3.4-5.0) gm/dl Globulin (2.5-4.0) gm/dl Albumin/Globulin Ratio (0.9-2) TSH 1.154 (0.300-4.500) uIu/ml SARS-CoV-2, RNA, NAAT (NEGATIVE) Blood Type O Positive Blood Type Recheck Antibody Screen NEGATIVE Crossmatch See Detail 11/15/21 11/15/21 11/15/21 Range/Units 16:07 16:07 16:07 WBC 6.60 (4.8-10.8) K/uL RBC 3.37 L (4.2-5.4) M/uL Hgb 7.1 L (12.0-16.0) g/dL Hct 24.0 L (37-47) % MCV 71.2 L (80-100) fL MCH 21.1 L (25-34) pg MCHC 29.6 L (32-36) g/dL RDW Std Deviation 45.6 (36.4-46.3) fL RDW Coeff of Best 17.5 H (11.5-14.5) % Plt Count 730 H (130-400) K/uL MPV 7.8 (7.4-10.4) fL Immature Gran % (Auto) 0.3 % Neut % (Auto) 62.4 % Lymph % (Auto) 23.2 % Monroe % (Auto) 10.6 % Eos % (Auto) 2.7 % Baso % (Auto) 0.8 % Reticulocyte % (Auto) 1.8 (0.5-2.0) % Neut # (Auto) 4.12 (1.4-6.5) K/uL Lymph # (Auto) 1.53 (1.2-3.4) K/uL Monroe # (Auto) 0.70 H (0.11-0.59) K/uL Eos # (Auto) 0.18 (0-0.5) K/uL Baso # (Auto) 0.05 (0-0.2) K/uL Reticulocyte # 0.06 (0.02-0.10) 10^6/uL Immature Gran # (Auto) 0.02 (0.00-0.02) K/uL Polychromasia 1+ Hypochromasia Present Anisocytosis Microcytosis Target Cells PT 10.3 (9.0-12.0) Seconds INR 1.0 (0.9-1.1) APTT 21.9 (21.0-31.0) Seconds PTT Ratio 0.8 Sodium 137 (136-145) mmol/L Potassium 4.3 (3.5-5.1) mmol/L Chloride 105 (98-107) mmol/L Carbon Dioxide 26 (21-32) mmol/L Anion Gap 6 (3-11) BUN 23 (6-23) mg/dl Creatinine 1.17 (0.6-1.2) mg/dl Est Cr Clr Drug Dosing 40.7 ml/min Est GFR ( Amer) 54.7 ml/min Est GFR (Non-Af Amer) 47.2 ml/min BUN/Creatinine Ratio 19.7 (10-20) Glucose 82 (70-99(Fasting)) mg/dl POC Glucose (70-99) mg/dl Estimat Average Glucose mg/dl Hemoglobin A1c (4.5-5.6) % Calcium 8.7 (8.5-10.1) mg/dl Phosphorus 3.8 (2.5-4.9) mg/dl Magnesium 2.2 (1.7-2.4) mg/dl Iron (35-150) mcg/dl Transferrin (200-360) mg/dl Ferritin (8-388) ng/ml Total Bilirubin 0.4 (0.2-1.0) mg/dl AST 21 (13-39) U/L ALT 26 (7-52) U/L Alkaline Phosphatase 47 (34-104) U/L Troponin I < 0.03 (0-0.04) ng/ml Total Protein 6.7 (6.0-8.3) gm/dl Albumin 4.3 (3.4-5.0) gm/dl Globulin 2.4 L (2.5-4.0) gm/dl Albumin/Globulin Ratio 1.8 (0.9-2) TSH (0.300-4.500) uIu/ml SARS-CoV-2, RNA, NAAT (NEGATIVE) Blood Type Blood Type Recheck Antibody Screen Crossmatch 11/15/21 Range/Units 16:05 WBC (4.8-10.8) K/uL RBC (4.2-5.4) M/uL Hgb (12.0-16.0) g/dL Hct (37-47) % MCV (80-100) fL MCH (25-34) pg MCHC (32-36) g/dL RDW Std Deviation (36.4-46.3) fL RDW Coeff of Best (11.5-14.5) % Plt Count (130-400) K/uL MPV (7.4-10.4) fL Immature Gran % (Auto) % Neut % (Auto) % Lymph % (Auto) % Monroe % (Auto) % Eos % (Auto) % Baso % (Auto) % Reticulocyte % (Auto) (0.5-2.0) % Neut # (Auto) (1.4-6.5) K/uL Lymph # (Auto) (1.2-3.4) K/uL Monroe # (Auto) (0.11-0.59) K/uL Eos # (Auto) (0-0.5) K/uL Baso # (Auto) (0-0.2) K/uL Reticulocyte # (0.02-0.10) 10^6/uL Immature Gran # (Auto) (0.00-0.02) K/uL Polychromasia Hypochromasia Anisocytosis Microcytosis Target Cells PT (9.0-12.0) Seconds INR (0.9-1.1) APTT (21.0-31.0) Seconds PTT Ratio Sodium (136-145) mmol/L Potassium (3.5-5.1) mmol/L Chloride (98-107) mmol/L Carbon Dioxide (21-32) mmol/L Anion Gap (3-11) BUN (6-23) mg/dl Creatinine (0.6-1.2) mg/dl Est Cr Clr Drug Dosing ml/min Est GFR ( Amer) ml/min Est GFR (Non-Af Amer) ml/min BUN/Creatinine Ratio (10-20) Glucose (70-99(Fasting)) mg/dl POC Glucose (70-99) mg/dl Estimat Average Glucose mg/dl Hemoglobin A1c (4.5-5.6) % Calcium (8.5-10.1) mg/dl Phosphorus (2.5-4.9) mg/dl Magnesium (1.7-2.4) mg/dl Iron (35-150) mcg/dl Transferrin (200-360) mg/dl Ferritin (8-388) ng/ml Total Bilirubin (0.2-1.0) mg/dl AST (13-39) U/L ALT (7-52) U/L Alkaline Phosphatase (34-104) U/L Troponin I (0-0.04) ng/ml Total Protein (6.0-8.3) gm/dl Albumin (3.4-5.0) gm/dl Globulin (2.5-4.0) gm/dl Albumin/Globulin Ratio (0.9-2) TSH (0.300-4.500) uIu/ml SARS-CoV-2, RNA, NAAT NEGATIVE (NEGATIVE) Blood Type Blood Type Recheck Antibody Screen Crossmatch Diagnostic Findings CTAP: Lung base: The lung bases are clear. Abdominal cavity: There is no evidence for abdominal mass, adenopathy or ascites. There is again a right inguinal hernia containing peritoneal fat with no bowel loop herniation. Liver: There is homogeneous attenuation of the liver parenchyma. There is no evidence for enhancing mass lesion. Spleen: There is homogeneous attenuation of the splenic parenchyma. There is no enhancing mass lesion. Pancreas: There is homogeneous attenuation of the pancreatic parenchyma. There is no evidence for mass lesion or peripancreatic fluid collection. Gall Bladder: The gallbladder is well distended with no evidence for intraluminal calculi, wall thickening or pericholecystic edema. Adrenal glands: The adrenal glands are normal in size and attenuation. There is no evidence for enhancing mass lesion. Kidneys: There is homogeneous attenuation of the renal parenchyma bilaterally. There is no evidence for renal calculus or hydronephrosis. There is no evidence for enhancing mass. Bowel: There is a moderately large hiatal hernia. The bowel loops are normally placed within the abdomen and pelvis without evidence for dilatation or obstruction. There is no evidence for mass lesion. There is minimal sigmoid diverticulosis without evidence for diverticulitis. There are no inflammatory changes present. There is no evidence for free air. The appendix is not visualized. Bladder: The bladder is contracted on this study and cannot be evaluated. : There is no evidence for pelvic mass or adenopathy. There is no evidence for pelvic ascites. Vasculature: There is no evidence for aneurysmal dilatation of the abdominal aorta. Osseous structures: There is no acute osseous pathology. Degenerative changes are seen within the spine. IMPRESSION: 1. No acute intra-abdominal or pelvic abnormality. 2. Moderately large hiatal hernia. 3. Mild sigmoid diverticulosis without evidence for diverticulitis. 4. Additional nonacute findings are delineated above. CXR: FINDINGS: Single frontal view of the chest demonstrates the cardiomediastinal silhouette to be within normal limits. The lungs are clear of alveolar opacities. There is no evidence for pleural effusion. There is no evidence for vascular congestion. There is no acute osseous pathology. IMPRESSION: 1. No acute cardiopulmonary disease.
[2021-11-16] MEDS: MAGNESIUM OXIDE 400 MG TAB PO SCH (10:53)
[2021-11-16] MEDS: ASCORBIC ACID 500 MG TAB PO SCH (10:53)
[2021-11-16] MEDS: CALCIUM CARBONATE 1250MG TAB PO SCH (10:53)
[2021-11-16] MEDS: CHOLECALCIFEROL 1,000 UNITS 25 MCG TAB PO SCH (10:53)
[2021-11-16] MEDS: CYANOCOBALAMIN (B-12) 500 MCG TABLET PO SCH (10:53)
[2021-11-16] MEDS: MULTIVITAMIN TAB PO SCH (10:53)
[2021-11-16] MEDS ORDERED: IRON SUCROSE 200 MG in 0.9 % SODIUM CHLORIDE 100 ML IV ONE (12:36)
[2021-11-16] MEDS: INSULIN ASPART PER UNIT SC SCH ×3 (12:43→20:44)
--- NOTE | 2021-11-16 16:53 | Hospitalist Progress Note ---
Date of Service November 16, 2021 Assessment & Plan (1) Symptomatic anemia: Plan: Patient is a 71-year-old female presents with dyspnea on exertion. Symptomatic anemia Iron deficiency anemia --CT ABD:No acute intra-abdominal or pelvic abnormality. Moderately large hiatal hernia. Mild sigmoid diverticulosis without evidence for diverticulitis. --Denies any bleeding issues, melena. Admits to using diclofenac for chronic arthritis for at least 2 years duration --Peripheral smear suggestive of iron deficiency anemia --S/P PRBC --Hb: 7.1>>8.3 --Echo reviewed Appreciate GI input Plan for EGD, colonoscopy on 11/21/2021 Continue PPI Avoid NSAIDs Started on iron supplements Prediabetes: HbA1c 6.0 Monitor BGs Hypertension: Continue olmesartan, amlodipine Monitor blood pressure. Hyperlipidemia: Continue statin. Hypothyroidism Normal TSH Continue levothyroxine Obesity: BMI:37 DVT Px: SCDs Admission and Anticipated Discharge Date Admission Date: November 15, 2021 Subjective Patient is seen and examined at bedside States feeling better today Generalized weakness, dyspnea on exertion improving Offers no other complaints Denies any chest pain, dizziness, nausea, abdominal pain Review of Systems Review of Systems: All systems reviewed & are unremarkable except as noted in Subjective Physical Exam Physical Exam: Physical Exam: Vitals signs as noted above General Appearance:Obese, no apparent distress Head: normocephalic, Atraumatic Eyes: normal inspection, EOMI, +Pallor Neck: supple, Trachea midline Respiratory/Chest: Normal breath sounds, CTA, No accessory muscle use Cardiovascular: S1, S2, No murmur Abdomen/GI:Soft, Non tender, Bowel sounds present Extremities/Musculoskeletal:normal inspection, no edema Neurologic/Psych:AAOX3, grossly no focal neurological deficits Skin: normal color, warm Results & Data Results & Data ([facility]) Vital Signs (Past 12 Hours) Vital Signs Temp Pulse Resp BP Pulse Ox 11/16/21 15:00 36.4 C L 117 H 18 131/67 94 11/16/21 09:00 36.6 C 79 18 127/75 95 Laboratory Results Short CBC 11/16/21 Range/Units 05:21 WBC 3.91 L (4.8-10.8) K/uL Hgb 8.3 L (12.0-16.0) g/dL Hct 27.8 L (37-47) % Plt Count 668 H (130-400) K/uL BMP 11/15/21 11/16/21 16:07 05:21 Sodium 137 139 Potassium 4.3 4.0 Chloride 105 105 Carbon Dioxide 26 26 BUN 23 14 Creatinine 1.17 0.81 D Glucose 82 94 Calcium 8.7 8.3 L Cardiac Enzymes 11/15/21 Range/Units 16:07 Troponin I < 0.03 (0-0.04) ng/ml Liver Function 11/15/21 Range/Units 16:07 Total Bilirubin 0.4 (0.2-1.0) mg/dl AST 21 (13-39) U/L ALT 26 (7-52) U/L Alkaline Phosphatase 47 (34-104) U/L Albumin 4.3 (3.4-5.0) gm/dl
[2021-11-16] MEDS: FERROUS SULFATE 325 MG TAB PO SCH (17:37)
[2021-11-16] MEDS ORDERED: SODIUM CHLORIDE 0.9% 500 ML IV ONE (20:54)
[2021-11-16] MEDS ORDERED: amLODIPine BESYLATE 5 MG TAB PO SCH (21:00)
[2021-11-16] MEDS ORDERED: OLMESARTAN MEDOXOMIL 20 MG TAB PO SCH (21:00)
[2021-11-16 21:31] LABS: Hematocrit (blood only) 27.1 % (37-47); Hemoglobin 8.3 g/dL (12.0-16.0)
[2021-11-17] MEDS: LEVOTHYROXINE SODIUM 100 MCG TABLET PO SCH (06:19)
[2021-11-17 07:09] LABS: Hematocrit (blood only) 28.6 % (37-47); Hemoglobin 8.5 g/dL (12.0-16.0); Mean Corpuscular Hemoglobin 21.7 pg (25-34); Mean Corpuscular Hgb Conc 29.7 g/dL (32-36); Mean Corpuscular Volume 73.1 fL (80-100); Mean Platelet Volume 8.1 fL (7.4-10.4); Platelet Count 640 K/uL (130-400); RDW Coefficient of Variation 18.5 % (11.5-14.5); RDW Standard Deviation 49.6 fL (36.4-46.3); Red Blood Count 3.91 M/uL (4.2-5.4); White Blood Count 5.09 K/uL (4.8-10.8)
[2021-11-17 07:45] LABS: BUN Creatinine Ratio 19.3 (10-20); Calcium 8.3 mg/dl (8.5-10.1); Creatinine Clr Calc Pharmacy 53.6 ml/min; Est GFR (African American) 77.2 ml/min; Est GFR (Non-African American) 66.6 ml/min
[2021-11-17] MEDS: INSULIN ASPART PER UNIT SC SCH ×2 (08:34→12:41)
[2021-11-17] MEDS: FERROUS SULFATE 325 MG TAB PO SCH (08:48)
[2021-11-17] MEDS ORDERED: PANTOprazole 40 MG TAB PO SCH (09:00)
[2021-11-17] MEDS ORDERED: IRON SUCROSE 200 MG in 0.9 % SODIUM CHLORIDE 100 ML IV ONE (10:00)
[2021-11-17] MEDS: CALCIUM CARBONATE 1250MG TAB PO SCH (11:25)
[2021-11-17] MEDS: CYANOCOBALAMIN (B-12) 500 MCG TABLET PO SCH (11:25)
[2021-11-17] MEDS: MULTIVITAMIN TAB PO SCH (11:25)
[2021-11-17] MEDS: CHOLECALCIFEROL 1,000 UNITS 25 MCG TAB PO SCH (11:25)
[2021-11-17] MEDS: ASCORBIC ACID 500 MG TAB PO SCH (11:25)
[2021-11-17] MEDS: MAGNESIUM OXIDE 400 MG TAB PO SCH (11:25)
--- NOTE | 2021-11-17 12:53 | Hospitalist Progress Note ---
Date of Service November 17, 2021 Assessment & Plan (1) Symptomatic anemia: Plan: Patient is a 71-year-old female presents with dyspnea on exertion. Symptomatic anemia Iron deficiency anemia --CT ABD:No acute intra-abdominal or pelvic abnormality. Moderately large hiatal hernia. Mild sigmoid diverticulosis without evidence for diverticulitis. --Denies any bleeding issues, melena. Admits to using diclofenac for chronic arthritis for at least 2 years duration --Peripheral smear suggestive of iron deficiency anemia --S/P PRBC --Hb: 7.1>>8.3>8.5 --Echo reviewed Appreciate GI input Plan for EGD, colonoscopy on 11/21/2021 Continue PPI Avoid NSAIDs Continue iron supplements Prediabetes: HbA1c 6.0 Monitor BGs Hypertension: Continue olmesartan, amlodipine Monitor blood pressure. Hyperlipidemia: Continue statin. Hypothyroidism Normal TSH Continue levothyroxine Obesity: BMI:37 DVT Px: SCDs Admission and Anticipated Discharge Date Admission Date: November 15, 2021 Subjective Patient is seen and examined at bedside Doing much better today No new complaints Denies any chest pain, dyspnea, dizziness, nausea, abdominal pain Review of Systems Review of Systems: All systems reviewed & are unremarkable except as noted in Subjective Physical Exam Physical Exam: Physical Exam: Vitals signs as noted above General Appearance:Obese, no apparent distress Head: normocephalic, Atraumatic Eyes: normal inspection, EOMI, +Pallor Neck: supple, Trachea midline Respiratory/Chest: Normal breath sounds, CTA, No accessory muscle use Cardiovascular: S1, S2, No murmur Abdomen/GI:Soft, Non tender, Bowel sounds present Extremities/Musculoskeletal:normal inspection, no edema Neurologic/Psych:AAOX3, grossly no focal neurological deficits Skin: normal color, warm Results & Data Results & Data ([facility]) Vital Signs (Past 12 Hours) Vital Signs Temp Pulse Resp BP Pulse Ox 11/17/21 07:55 36.6 C 73 16 123/66 98 Laboratory Results Short CBC 11/16/21 11/17/21 Range/Units 21:16 06:43 WBC 5.09 (4.8-10.8) K/uL Hgb 8.3 L 8.5 L (12.0-16.0) g/dL Hct 27.1 L 28.6 L (37-47) % Plt Count 640 H (130-400) K/uL BMP 11/17/21 06:43 Sodium 139 Potassium 4.0 Chloride 107 Carbon Dioxide 25 BUN 17 Creatinine 0.88 Glucose 98 Calcium 8.3 L
--- NOTE | 2021-11-17 13:00 | Discharge Summary ---
Date of Service November 17, 2021 Admission HPI Per Admitting Provider CHIEF COMPLAINT: Shortness of breath. HISTORY OF PRESENT ILLNESS: A 71-year-old female with past medical history significant for acquired hypothyroidism, prediabetes, hypertension, peripheral vascular disease, obesity, GERD, history of colon polyps, who presents with shortness of breath. She went to PCP on 11/08/2021 with shortness of breath and labs were done, which showed severe microcytic hypochromic anemia with hemoglobin of 7.3, seems to be her chest x-ray showed large hiatal hernia. EKG was okay. Thyroid tests and BNP were okay and she was scheduled for EGD and colonoscopy on 11/21/2021. Last colonoscopy showed 4-mm colon polyp, internal hemorrhoids and sigmoid diverticulosis, but the patient states this shortness of breath has been going on for a few weeks, for the last one week, it got progressively worsened, today she thinks she might have overdid it and she got very short of breath and she went to PCP again and her hemoglobin was 7, so she was advised to come to the ER. Currently, resting comfortably and hemodynamically stable. Whenever she is ambulatory, she gets short of breath with slight dizziness. Denies any headache. No blurred visions. No earache, no runny nose, no sore throat. No cough. Appetite is okay. No difficulty swallowing. No recent weight gain or weight loss. No chest pain. No palpitations. No nausea, no abdominal pain. Normal bowel and bladder movements . Denies any blood in stool or black stools. No hematuria. She thinks she has some mild ankle swelling. Admission Exam Per Admitting Provider PHYSICAL EXAMINATION: GENERAL: The patient is obese, not in acute distress. VITAL SIGNS: Temperature 36.8, pulse 87, respiratory rate 18, blood pressure 146/80, oxygen 94% on nasal cannula. HEENT: No pallor. No icterus. Pupils equal, round and reactive to light. Oral mucosa moist. NECK: No JVD, no neck masses. CARDIOVASCULAR: S1 and S2 heard. Regular rate and rhythm. No murmur, no gallop. RESPIRATORY SYSTEM: Normal AP diameter. No accessory muscle use. No wheezing, no crackles. ABDOMEN: Soft, bowel sounds present, nontender, no distention. CENTRAL NERVOUS SYSTEM: Cranial nerves II through XII grossly intact, nonfocal. EXTREMITIES: Trace pedal edema, no erythema seen. Principal Diagnosis Symptomatic anemia Iron deficiency anemia Discharge Data Allergies Allergy/AdvReac Type Severity Reaction Status Date / Time Sulfa (Sulfonamide Allergy Intermediate Rash Verified 11/15/21 18:41 Antibiotics) benazepril AdvReac Intermediate Cough Verified 11/15/21 18:41 lisinopril AdvReac Intermediate Cough Verified 11/15/21 18:41 Consultations 11/15/21 20:10 ED Decision to Admit Stat 11/16/21 08:00 Consult Gastroenterology Routine Ordered Studies 11/15/21 15:58 CT abd pelvis IV con only Stat Hospital Course (1) Symptomatic anemia: Patient is a 71-year-old female presents with dyspnea on exertion. Symptomatic anemia Iron deficiency anemia --CT ABD:No acute intra-abdominal or pelvic abnormality. Moderately large hiatal hernia. Mild sigmoid diverticulosis without evidence for diverticulitis. --Denies any bleeding issues, melena. Admits to using diclofenac for chronic arthritis for at least 2 years duration --Peripheral smear suggestive of iron deficiency anemia --S/P PRBC --Hb: 7.1>>8.3>8.5 --Echo reviewed Appreciate GI input Plan for EGD, colonoscopy on 11/21/2021 Continue PPI Avoid NSAIDs Continue iron supplements Prediabetes: HbA1c 6.0 Monitor BGs Hypertension: Continue olmesartan, amlodipine Monitor blood pressure. Hyperlipidemia: Continue statin. Hypothyroidism Normal TSH Continue levothyroxine Obesity: BMI:37 DVT Px: SCDs Total Time Total Time Spent Total Time Spent (In Minutes): 43 minutes Discharge Plan Discharge Items Patient Disposition: Home - Self-Care Reason For Visit: SOB Discharge Diagnosis: Symptomatic anemia Iron deficiency anemia Activity: Per Instructions section Exercise/Sports: Gradually increase as tolerated Non-emergency contact: Primary Care Provider and Hand Paster Call non-emergency contact if: you have any medication questions, your symptoms worsen, your pain is concerning for you and you have a fever Follow-up/Referrals: Stef Salmon MD [Primary Care Provider] - (Date & Time 11/25/2021 11:00 AM Provider Stef Salmon III, MD Department [facility] ) Naomi Cheek DO [Physician] - 11/21/21 (The [facility] will call you with directions and the time to arrive for the colonoscopy and EGD.) Diet: Heart Healthy Addtl Attending Provider Instructions: Follow-up with your primary care physician Dr. Salmon on 11/25/2021 11:00 AM Follow-up with your auditing manager Dr. Cheek on 11/21/21 for EGD/Colonoscopy as outpatient Seek immediate medical attention if your symptoms reoccur or worsen Please take all medications as instructed on discharge list below. Please call if you have any questions or problems. You can reach a [facility] hospitalist on duty at [facility] 24 hours a day by calling [phone] Pending Studies at Discharge: No Stand-Alone Forms: My [facility] [employer], Smoking Cessation Medications and DC Order Prescriptions: New ferrous sulfate 325 mg (65 mg iron) Tablet,Delayed Release (Dr/Ec) 325 mg PO BIDM Qty: 60 RF: 0 docusate sodium [Colace] 100 mg capsule 100 mg PO BID PRN (Reason: constipation) Qty: 60 RF: 0 Continued levothyroxine [Synthroid] 100 mcg tablet 100 mcg PO DAILY RF: 0 omeprazole 40 mg capsule,delayed release(DR/EC) 40 mg PO HS RF: 0 amlodipine 10 mg tablet 10 mg PO HS RF: 0 olmesartan [Benicar] 20 mg tablet 20 mg PO HS RF: 0 rosuvastatin 10 mg tablet 5 mg PO 3XWK RF: 0 ascorbate calcium (vitamin C) 500 mg tablet 500 mg PO QDL RF: 0 multivitamin [Daily Multi-Vitamin] Tablet 1 tab PO QDL RF: 0 cyanocobalamin (vitamin B-12) [Vitamin B-12] 2,000 mcg tablet extended release 2,000 mcg PO QDL RF: 0 cholecalciferol (vitamin D3) 50 mcg (2,000 unit) capsule 50 mcg PO QDL RF: 0 glucosamine sulfate [Glucosamine] 500 mg tablet 500 mg PO BID RF: 0 calcium carbonate [Calcium 600] 600 mg calcium (1,500 mg) Tablet 600 mg PO QDL RF: 0 vitamin E 400 unit Capsule 400 unit PO QDL RF: 0 magnesium oxide 400 mg magnesium Tablet 400 mg PO QDL RF: 0 Discontinued diclofenac sodium 75 mg tablet,delayed release (DR/EC) 75 mg PO BID RF: 0 Discharge Orders: Discharge Order (Routine); Ordered 11/17/21 Ordered By: Tony Bearden Admission Data Admit Date/Time: 11/15/21 22:14 Attending Provider: Tony Bearden Admit Provider: Malcom Ta Primary Care Provider: Stef Salmon Other Providers: Malcom Ta ; Gina Grigsby
[2021-11-17] MEDS ORDERED: amLODIPine BESYLATE 5 MG TAB PO SCH (21:00)
[2021-11-17] MEDS ORDERED: OLMESARTAN MEDOXOMIL 20 MG TAB PO SCH (21:00)
== END 2021-11-17 14:29 | disposition home or self-care (01) | DRG 812 ==
LOC: ED 15:07 → 3N 22:14

== ENCOUNTER 2023-02-02 07:02 | Observation (INO) ==
--- NOTE | 2022-12-25 15:15 | PAT Medication Instructions ---
Medication Instructions Date of Service December 25, 2022 Home Medications Medication Instructions Recorded ferrous sulfate 325 mg (65 mg 325 mg PO BIDM #60 tabs 11/17/21 iron) tablet,delayed release estradiol 10 mcg vaginal tablet 10 mcg vaginal DAILY #90 tabs 11/07/22 ascorbate calcium (vitamin C) 500 mg tablet 500 mg PO QDL cholecalciferol (vitamin D3) 50 mcg (2,000 unit) capsule 50 mcg PO QDL glucosamine sulfate 500 mg tablet (Glucosamine) 500 mg PO BID levothyroxine 100 mcg tablet (Synthroid) 100 mcg PO QAM multivitamin (Daily Multi-Vitamin tablet) 1 tab PO QDL olmesartan 20 mg tablet (Benicar) 20 mg PO HS omeprazole 40 mg capsule,delayed release 40 mg PO UD PRN rosuvastatin 10 mg tablet 5 mg PO QAM calcium carbonate 600 mg calcium (1,500 mg) tablet (Calcium) 600 mg PO QDL magnesium oxide 400 mg PO HS vitamin E 268 mg (400 unit) capsule 400 unit PO QDL ferrous sulfate 325 mg (65 mg iron) tablet,delayed release 325 mg PO BID amlodipine 10 mg tablet 5 mg PO HS cyanocobalamin (vitamin B-12) 2,000 mcg tablet,extended release (Vitamin B-12 ER) 1,000 mcg PO QDL estradiol 10 mcg vaginal tablet 10 mcg vaginal DAILY Continue as directed omeprazole 40 mg capsule,delayed release 40 mg PO UD PRN(if needed) STOP taking 2 weeks before surgery (or as soon as possible if surgery is within 2 weeks) glucosamine sulfate 500 mg tablet (Glucosamine) 500 mg PO BID vitamin E 268 mg (400 unit) capsule 400 unit PO QDL STOP taking 24 hours before surgery estradiol 10 mcg vaginal tablet 10 mcg vaginal DAILY DO NOT take the morning of surgery ascorbate calcium (vitamin C) 500 mg tablet 500 mg PO QDL cholecalciferol (vitamin D3) 50 mcg (2,000 unit) capsule 50 mcg PO QDL multivitamin (Daily Multi-Vitamin tablet) 1 tab PO QDL calcium carbonate 600 mg calcium (1,500 mg) tablet (Calcium) 600 mg PO QDL ferrous sulfate 325 mg (65 mg iron) tablet,delayed release 325 mg PO BID cyanocobalamin (vitamin B-12) 2,000 mcg tablet,extended release (Vitamin B-12 ER) 1,000 mcg PO QDL Take morning of surgery With a small sip of water, OTHERWISE NOTHING TO EAT OR DRINK AFTER MIDNIGHT: levothyroxine 100 mcg tablet (Synthroid) 100 mcg PO QAM rosuvastatin 10 mg tablet 5 mg PO QAM Take evening before surgery olmesartan 20 mg tablet (Benicar) 20 mg PO HS magnesium oxide 400 mg PO HS ferrous sulfate 325 mg (65 mg iron) tablet,delayed release 325 mg PO BID amlodipine 10 mg tablet 5 mg PO HS Other Notes If you have any questions please call us at [phone] or [phone] or [phone] or [phone]
--- NOTE | 2023-01-01 11:32 | Anesthesiology Consultation ---
Date of Service January 01, 2023 Assessment & Plan (1) Encounter for pre-operative examination: - COVID screening: Per assessment on 01/01: No known COVID-19 positive contacts or current COVID-19 related symptoms. Travel screen negative. Patient vaccinated. At surgeon discretion if preop Covid testing being done. - Outpatient joint assessment: Pt currently scheduled for inpatient pathway. If surgeon requests review for outpatient joint pathway, patient is an acceptable candidate for outpatient joint program from anesthesia standpoint pending surgeon's office assessment that patient is motivated, has good support and completes Same Day Joint Program preop requirements. - Patient request: Does not wish to hear anything during surgery- requests deeper sedation if possible* Chart Review Chart Review: Acceptable Risk for Surgery and Patient seen in Pre Admission Testing Teaching & Discussion Pre-Anesthesia Teaching/Discussion Notes: Instructed NPO after midnight before surgery,except medications with 15 cc of water. Medication instructions provided according to the PAT guidelines. History Surgery Operation Date: 02/02/23 08:10 Proposed Procedures p Right Total Knee Arthroplasty - Maikel Lozano DO Height/Weight Height: 4 ft 10 in Weight: 81 kg Allergies Allergy/AdvReac Type Severity Reaction Status Date / Time Sulfa (Sulfonamide Allergy Unknown Rash Verified 12/22/22 10:01 Antibiotics) benazepril AdvReac Unknown Cough Verified 12/22/22 10:01 lisinopril AdvReac Unknown Cough Verified 12/22/22 10:01 Medications Home Medications Medication Instructions Recorded Confirmed Last Taken ascorbate calcium (vitamin C) 500 500 mg PO QDL 05/25/21 12/22/22 11/14/21 mg tablet cholecalciferol (vitamin D3) 50 50 mcg PO QDL 05/25/21 12/22/22 11/14/21 mcg (2,000 unit) capsule glucosamine sulfate 500 mg tablet 500 mg PO BID 05/25/21 12/22/22 11/15/21 07:00 (Glucosamine) levothyroxine 100 mcg tablet 100 mcg PO QAM 05/25/21 12/22/22 11/15/21 (Synthroid) multivitamin (Daily Multi-Vitamin 1 tab PO QDL 05/25/21 12/22/22 11/14/21 tablet) olmesartan 20 mg tablet (Benicar) 20 mg PO HS 05/25/21 12/22/22 11/14/21 omeprazole 40 mg capsule,delayed 40 mg PO UD PRN HIATAL HERNIA 05/25/21 12/22/22 11/14/21 release rosuvastatin 10 mg tablet 5 mg PO QAM 05/25/21 12/22/22 11/14/21 calcium carbonate 600 mg calcium 600 mg PO QDL 11/15/21 12/22/22 11/14/21 (1,500 mg) tablet (Calcium) magnesium oxide 400 mg PO HS 11/15/21 12/22/22 11/14/21 vitamin E 268 mg (400 unit) capsule 400 unit PO QDL 11/15/21 12/22/22 11/14/21 ferrous sulfate 325 mg (65 mg 325 mg PO BIDM #60 tabs 11/17/21 12/22/22 Unknown iron) tablet,delayed release amlodipine 10 mg tablet 5 mg PO HS 08/23/22 12/22/22 Unknown cyanocobalamin (vitamin B-12) 1,000 mcg PO QDL 08/23/22 12/22/22 Unknown 2,000 mcg tablet,extended release (Vitamin B-12 ER) estradiol 10 mcg vaginal tablet 10 mcg vaginal DAILY #90 tabs 11/07/22 12/22/22 Unknown krill oil 1 tab PO DAILY 01/01/23 01/01/23 Unknown Past Medical History Medical History Acid reflux Hx Arthritis Back ache Chronic, occasional Mild-moderate degenerative changes thoracic spine Degenerative arthritis High cholesterol History of anemia 2021- required blood transfusion/iron infusions, unremarkable workup (including labs/egd/colonoscopy) per patient, no etiology found per patient HTN (hypertension) Hypothyroid Obesity Pre-diabetes Exercise / Class Metabolic Activity II 4-5 Yardwork/Stairs/Walk up hill Past Family History Family History Grandmother (Paternal) Colorectal cancer Grandfather (Maternal) Colorectal cancer Grandmother (Maternal) Diabetes Mother Hypertension Stroke syndrome Sister Breast cancer two sisters Denies family history of Ovarian cancer Prostate cancer Past Surgical History Surgical History Bartholin cyst REMOVED Hiatal hernia Hiatal hernia repair ([facility], 11/2022) History of Surgically induced by D&E History of amputation of hallux Hallux valgus (bunion) correction History of ankle surgery History of appendectomy History of colonoscopy History of endoscopy History of gynecologic surgery POSTERIOR REPAIR History of tonsillectomy Past Anesthesia History No Hx of Anesthesia Complications and No Family Hx of Anesthesia Complications History of PONV No Hx of PONV and No Hx of Motion Sickness Social History Smoking Status: Never smoker Do You Dip or Chew Tobacco: No Hx Alcohol Use: Yes alcohol intake frequency: holidays/special occasions only (Rare) Hx Substance Use: No substance use type: does not use Review of Systems Patient denies chest pain, shortness of breath, dyspnea on exertion, fever, chills, cough, wheezing, palpitations. Physical Exam Vital Signs VITALS BP 122/77 P 91 TEMP 98.1 SP02 95%RA RESP 16 PHYSICAL Full cervical extension range of motion. Full TMJ range of motion. TMD 3 finger breaths Mallampati Score 2 Dentition: intact, + crowns/implants (including left upper side) Lungs: clear throughout to auscultation Cardiac: regular rate and rhythm, no murmurs noted Spine: normal Carotid arteries: negative bruit Extremities: no LE edema Lab Results Anesthesia Preop Results Results Anesthesia Widget: WBC 4.59 K/ul (4.8-10.8) L 01/01/23 Hgb 14.5 g/dl (12.0-16.0) 01/01/23 Hct 44.8 % (37.0-47.0) 01/01/23 Plt 353 K/uL (130-400) 01/01/23 Na 140 mmol/L (136-145) 01/01/23 K 4.1 mmol/L (3.5-5.1) 01/01/23 Cl 108 mmol/L (98-107) H 01/01/23 CO2 26 mmol/L (21-32) 01/01/23 BUN 16 mg/dl (6-23) 01/01/23 Creat 0.68 mg/dl (0.6-1.2) 01/01/23 Glucose Level 77 mg/dl (70-99(Fasting)) 01/01/23 PT 10.9 Seconds (9.0-12.0) 01/01/23 PTT 28.5 Seconds (21.0-31.0) 01/01/23 INR 1.0 (0.9-1.1) 01/01/23 Blood Type O Positive 01/01/23 Antibody Screen NEGATIVE 01/01/23 Testing Electrocardiogram Date: 10/13/22 Findings: + NSR @ (80) Chest X-Ray Date: 01/01/23 Findings: + NAD Echocardiogram Date: 11/16/21 EF 65-70%. Basal septum is thickened and angulated consistent with sigmoid septum. LV wall motion is normal. No significant valvular disease. COVID-19 Risk Screen Screening Information COVID-19 Screen Date: 01/01/23 Exposure 21 Days Family/Household +COVID Last 21 Days: No Exposure 10 Days Any COVID Exposure Last 10 Days: No Symptoms Last 10 Days Experienced COVID Sx Last 10 Days: No + COVID 0-90 Days COVID + in Last 0-90 Days: No
--- NOTE | 2023-02-01 14:39 | History & Physical Report ---
Date of Service February 01, 2023 Assessment & Plan (1) Osteoarthritis of right knee: We will proceed with a right total knee arthroplasty. Postoperatively she will be started on aspirin and kept overnight in the hospital for postop medical management. History of Present Illness Chief Complaint: Osteoarthritis of the right knee. Primary Care Provider: Stef Salmon MD Paz is a pleasant 72-year-old female who has been dealing with chronic worsening bilateral knee pain. Her right knee has been more painful than her left. I have been giving her some injections. The last injections did not help as much. She went on a vacation and really struggled. The conservative treatment has been failing. X-rays and clinical examination have shown worsening osteoarthritis of the right knee. After failing conservative treatment, she has elected proceed with a right total knee arthroplasty. Allergies Allergy/AdvReac Type Severity Reaction Status Date / Time Sulfa (Sulfonamide Allergy Unknown Rash Verified 01/31/23 10:17 Antibiotics) benazepril AdvReac Unknown Cough Verified 01/31/23 10:17 lisinopril AdvReac Unknown Cough Verified 01/31/23 10:17 Home Medications Medication Instructions Recorded Confirmed Type ascorbate calcium (vitamin C) 500 500 mg PO QDL 05/25/21 01/31/23 History mg tablet cholecalciferol (vitamin D3) 50 50 mcg PO QDL 05/25/21 01/31/23 History mcg (2,000 unit) capsule glucosamine sulfate 500 mg tablet 500 mg PO BID 05/25/21 01/31/23 History (Glucosamine) levothyroxine 100 mcg tablet 100 mcg PO QAM 05/25/21 01/31/23 History (Synthroid) multivitamin (Daily Multi-Vitamin 1 tab PO QDL 05/25/21 01/31/23 History tablet) olmesartan 20 mg tablet (Benicar) 20 mg PO HS 05/25/21 01/31/23 History rosuvastatin 10 mg tablet 5 mg PO QAM 05/25/21 01/31/23 History calcium carbonate 600 mg calcium 600 mg PO QDL 11/15/21 01/31/23 History (1,500 mg) tablet (Calcium) magnesium oxide 400 mg PO HS 11/15/21 01/31/23 History vitamin E 268 mg (400 unit) capsule 400 unit PO QDL 11/15/21 01/31/23 History ferrous sulfate 325 mg (65 mg 325 mg PO BIDM #60 tabs 11/17/21 01/31/23 Rx iron) tablet,delayed release amlodipine 10 mg tablet 5 mg PO HS 08/23/22 01/31/23 History cyanocobalamin (vitamin B-12) 1,000 mcg PO QDL 08/23/22 01/31/23 History 2,000 mcg tablet,extended release (Vitamin B-12 ER) estradiol 10 mcg vaginal tablet 10 mcg vaginal DAILY #90 tabs 11/07/22 01/31/23 Rx krill oil 1 tab PO DAILY 01/01/23 01/31/23 History Past Med/Surg History Medical History Acid reflux Hx Arthritis Back ache Chronic, occasional Mild-moderate degenerative changes thoracic spine Degenerative arthritis High cholesterol History of anemia 2021- required blood transfusion/iron infusions, unremarkable workup (including labs/egd/colonoscopy) per patient, no etiology found per patient HTN (hypertension) Hypothyroid Obesity Pre-diabetes Surgical History Bartholin cyst REMOVED Hiatal hernia Hiatal hernia repair ([facility], 11/2022) History of Surgically induced by D&E History of amputation of hallux Hallux valgus (bunion) correction History of ankle surgery History of appendectomy History of colonoscopy History of endoscopy History of gynecologic surgery POSTERIOR REPAIR History of tonsillectomy Family History Grandmother (Paternal) Colorectal cancer Grandfather (Maternal) Colorectal cancer Grandmother (Maternal) Diabetes Mother Hypertension Stroke syndrome Sister Breast cancer two sisters Denies family history of Ovarian cancer Prostate cancer Social History Smoking Status: Never smoker Do You Dip or Chew Tobacco: No; Hx Alcohol Use: Yes Hx Substance Use: No Preferred Language: Sinhala Communication Ability: Effective Electrical Technology Instructor Required: No Beliefs That Will Affect Care: None Current Living Situation: Spouse Other Information That Helps Us Care for You: No Feels Safe at Home: Yes Assistive Devices: Glasses Review of Systems All systems reviewed & are unremarkable except as noted in HPI & below. Physical Exam On physical examination of the right knee, she has decreased range of motion from 5 to 120 degrees. No instability. Pain over the distal medial femoral condyle.. Constitutional WD/WN, vitals as above Eyes PERRL, conjunctivae normal, anicteric sclerae ENMT external ear and nose normal, oropharynx normal Neck trachea midline, no thyromegaly Respiratory normal respiratory effort, lungs clear to auscultation Cardiovascular RRR, no murmur, no edema Gastrointestinal (Abdomen) normal bowel sounds, soft, nontender, no hepatosplenomegaly Skin no rashes, warm and dry Psychiatric A+Ox3, euthymic affect Results & Data Results & Data Laboratory Results . Diagnostic Findings X-rays of the right knee show slight varus deformity with joint space narrowing osteophyte formation and [id number] articulation.. PG Care Time/CCT Total # of Minutes Spent Total Time Spent with Patient: Total time spent is greater than 50% in coordination of care (as documented) at patient's floor/unit and/or counseling patient: Coding Level of Care Code None Diagnoses Osteoarthritis of right knee M17.11
[~2023-02-02 07:02] MED LIST changes: +ACETAMINOPHEN 500 MG TAB PO SCH; -ASCA500 PO; -CALC-20 PO; -DICL-201 PO; +FAMOTIDINE 20 MG TAB PO SCH; +GABAPENTIN 300 MG CAP PO SCH; -GLUCCAP5 PO; +Ketorolac (*for OR use only*) 30 MG, dexAMETHasone 4 MG, KETAMINE HCL (**OR use only) 1... INFIL SCH; -LEVO100T PO; -LOSA1TAB38 PO; +LR 500ML BOLUS, THEN 15ML/HR IV SCH; +LR 60ML/HR IV SCH; -MAGNTAB4 PO; -MULTTAB PO; -OMEP40CA PO; +ROPIVACAINE 0.5% 5 MG/ML 30 ML VIAL ONE; +TRANEXAMIC ACID 1,000 MG **IV Intra-op IV SCH; +TRANEXAMIC ACID 1,000 MG **IV Pre-op IV SCH; -VITA400C15 PO; +ceFAZolin 2000MG 2,000 MG/15 ML SYR IV SCH; +dexAMETHasone 4 MG TAB PO SCH
--- NOTE | 2023-02-02 09:21 | History & Physical Bridge Note ---
Date of Service February 02, 2023 History & Physical Bridge Note I have examined the patient, reviewed the History & Physical and in the interval since the performance of the History & Physical I have noted the following changes of clinical significance: no changes noted
[2023-02-02] MEDS ORDERED: fentaNYL citrate PF 100 MCG/2 ML VIAL ONE (10:03)
[2023-02-02] MEDS ORDERED: MIDAZOLAM HCL 1 MG/ML 2ML VIAL ONE (10:03)
[2023-02-02] MEDS ORDERED: LIDOCAINE 2% 2 ML VIAL/AMP(20MG/ML) INFIL ONE (10:07)
[2023-02-02] MEDS ORDERED: ONDANSETRON INJ 2 MG/ML 2 ML VIAL ONE (10:07)
[2023-02-02] MEDS ORDERED: PROPOFOL IV EMULSION 10 MG/ML 20 ML VIAL IV ONE (10:07)
[2023-02-02] MEDS ORDERED: KETOROLAC 30 MG/ML VIAL IV PRN (10:09)
[2023-02-02] MEDS ORDERED: ORTHO JOINT ANESTHETIC ONE (10:09)
[2023-02-02] MEDS ORDERED: ONDANSETRON INJ 2 MG/ML 2 ML VIAL IV PRN ×2 (10:09→13:34)
[2023-02-02] MEDS ORDERED: ATROPINE SULFATE 0.1 MG/ML 10ML SYR IV PRN (10:09)
[2023-02-02] MEDS ORDERED: ePHEDrine sulfate 50 MG/ML AMP IV PRN (10:09)
[2023-02-02] MEDS ORDERED: HYDROmorphone INJ 1 MG/ML SYRINGE IV PRN (10:09)
--- NOTE | 2023-02-02 12:04 | Operative Report ---
PG Post Operative Report Pre & Post Diagnosis Operation Date: 02/02/23 10:00 Pre-Op Diagnosis: Right Knee Degenerative Joint Disease Post-Op Diagnosis: Right Knee Degenerative Joint Disease I identified the patient and participated in the time-out.: Yes Procedure Operation Date: 02/02/23 10:00 Actual Procedures p Right Total Knee Arthroplasty(Right) - Maikel Lozano DO Surgeon Maikel Lozano DO Audiology Doctor Maikel Brown PA-C Estimated Blood Loss 30 Findings Consistent with Post-Op Diagnosis Specimens Right femoral tibial bone Description of Procedure Implants used: I used a Brenda Persona total knee arthroplasty system with a size 6 standard PS femur, D tibia, 31 oval patella, and a size 14 CPS polyethylene bearing. All components were cemented in place with Biomet cement. Paz arrived [facility] for the above procedure. She was seen in the preoperative holding area and the operative extremity was identified and signed. She was given a preoperative antibiotic, TXA, a spinal anesthetic and an adductor nerve block. She was taken back to the operating room and laid on the table in supine position. She was given basic sedation. The operative knee was then prepped and draped in sterile fashion. A timeout was done, and the patient and the operative extremity was properly identified. A midline incision was made directly over the patella. Dissection was taken down to the extensor mechanism. A midvastus arthrotomy was used. The medial retinaculum was released and the fat pad was mostly excised. The knee was flexed and the ACL, PCL, and meniscus were removed. A drill was sent down the center of the femoral canal followed by an intramedullary jen. Off that jen a distal femoral cutting block was placed. 9 mm was resected off the distal femur at 5 of valgus. A posterior referencing AP sizing guide was then placed on the distal femur. The femur measured to be a size 6. 2 drill holes were placed in 3 of external rotation. A 4-in-1 cutting block was then impacted into place. Anterior, posterior, and chamfer cuts were then made. The proximal tibia was then exposed. An external tibial alignment guide was placed. A tibial cut guide was then anchored in place and the proximal tibia was then resected. The posterior aspect of the knee was then opened up and any additional meniscus fragments and osteophytes were removed. The tibia measured to be a size D. The tibial plate was then placed in the appropriate rotation and the tibia was drilled and punched. Trial components were then placed. I used a size 14 CPS polyethylene insert. The knee was brought through a full range of motion and felt to be stable. The peg holes for the femoral component were then drilled. The patella was then everted and 9 mm was resected off the posterior aspect of the patella. The patella measured to be a size 31 oval. 3 peg holes were then drilled. A trial patella was placed. The knee was once again brought through a full range of motion and felt to be stable. Trial components were then removed. The surrounding soft tissues were injected with 100 cc of an orthopedic pain control cocktail. All components were then cemented into place with Biomet cement. The final polyethylene insert was then snapped into place. Once cement was dry the tourniquet was deflated. Hemostasis was obtained. A dilute betadyne lavage was then done for 3 minutes. The joint was then irrigated with normal saline solution. The midvastus arthrotomy was then closed with #1 Vicryl suture. The skin was closed with 2-0 Vicryl, 3-0V lock suture, and royal. A soft compressive dressing was placed. She was then transferred to a hospital bed and taken to the postanesthesia care unit in stable condition. She tolerated the procedure well. Maikel Brown PA-C, was present for the entire procedure. He was critical for patient positioning, prepping, draping, retraction exposure, wound closure and application of sterile dressing. I attest to the content of the Intraoperative Record and any orders documented therein. Any exceptions are noted below.
--- NOTE | 2023-02-02 13:18 | Anesthesiology Progress Note ---
Date of Service February 02, 2023 Anesthesia Post Procedure Vital Signs Vital Signs: Temp Pulse Resp BP Pulse Ox O2 Del Method O2 Flow Rate 02/02/23 13:05 36.4 C L 71 13 109/71 93 Room Air 02/02/23 12:45 74 15 128/66 96 Room Air 02/02/23 12:55 77 15 124/63 95 Room Air 02/02/23 12:35 79 22 127/71 100 Oxymask 6 02/02/23 12:28 36.2 C L 88 18 120/60 98 Oxymask 6 Pain Intensity Right Knee: Pain Intensity: 0 Transfer of Care Handoff Completed per policy Notes Mental Status: alert / awake / arousable Patient Amnestic to Procedure: Yes Nausea / Vomiting: adequately controlled Pain: adequately controlled Airway Patency, RR, SpO2: stable & adequate BP & HR: stable & adequate Hydration State: stable & adequate Neuraxial Anesthesia: was administered and sensory block is resolving Anesthetic Complications: no major complications apparent
[2023-02-02] MEDS ORDERED: HYDROmorphone INJ 0.5 MG/0.5 ML SYR IV PRN (13:34)
[2023-02-02] MEDS ORDERED: NALOXONE HCL 0.4 MG/1 ML VIAL/CARP IV PRN (13:34)
[2023-02-02] MEDS ORDERED: MAGNESIUM HYDROXIDE SUSP 30 ML UDC PO PRN (13:34)
[2023-02-02] MEDS ORDERED: oxyCODONE HCL IR 5 MG TAB (IMMEDIATE RELEASE) PO PRN (13:34)
[2023-02-02] MEDS ORDERED: METOCLOPRAMIDE HCL INJ 5 MG/ML 2 ML VIAL IV PRN (13:34)
[2023-02-02] MEDS ORDERED: bisacodyL 10 MG SUPP PR PRN (13:34)
--- NOTE | 2023-02-02 14:31 | XRay Report ---
XR knee RT 1 or 2V routine CLINICAL HISTORY: Surgical Post Op TECHNIQUE: 2 views of the right knee were obtained. Comparison: None available at the time of this dictation. FINDINGS: Patient is status post total knee arthroplasty with expected postsurgical changes including soft tiss ue swelling and subcutaneous emphysema. No periarticular lucency or hardware fracture is seen. IMPRESSION: Expected postoperative appearance status post placement of total knee arthroplasty. ACT 112: Negative or not required by law. Electronically signed by: Jeremiah Andrade M.D. 02/02/2023 2:29 PM
[2023-02-02] MEDS: KETOROLAC TROMETHAMINE 15 MG/ML VIAL IV SCH ×2 (14:45→20:02)
[2023-02-02] MEDS: SODIUM CHLORIDE 0.9% 1000ML 1,000 ML IV SCH ×2 (14:46→23:23)
[2023-02-02] MEDS: ACETAMINOPHEN 500 MG TAB PO SCH ×2 (14:46→21:55)
[2023-02-02] MEDS: ceFAZolin 2000MG 2,000 MG/15 ML SYR IV SCH (18:35)
[2023-02-02] MEDS: GLUCOSAMINE SULFATE 500 MG CAP PO SCH (20:02)
[2023-02-02] MEDS ORDERED: SENNA 8.6 MG TAB PO SCH (21:00)
[2023-02-02] MEDS ORDERED: ROSUVASTATIN CALCIUM 5 MG TAB PO SCH (21:00)
[2023-02-02] MEDS ORDERED: OLMESARTAN MEDOXOMIL 20 MG TAB PO SCH (21:00)
[2023-02-02] MEDS ORDERED: LOSARTAN POTASSIUM 50 MG TAB PO SCH (21:00)
[2023-02-02] MEDS ORDERED: MAGNESIUM OXIDE 400 MG TAB PO SCH (21:00)
[2023-02-02] MEDS ORDERED: amLODIPine BESYLATE 5 MG TAB PO SCH (21:00)
[2023-02-02] MEDS: DOCUSATE SODIUM 100 MG CAP PO SCH (21:54)
[2023-02-02] MEDS: ASPIRIN 81 MG ECTAB PO SCH (22:14)
[2023-02-03] MEDS: KETOROLAC TROMETHAMINE 15 MG/ML VIAL IV SCH ×2 (00:52→07:32)
[2023-02-03] MEDS: ceFAZolin 2000MG 2,000 MG/15 ML SYR IV SCH (03:09)
[2023-02-03] MEDS: ACETAMINOPHEN 500 MG TAB PO SCH (06:03)
[2023-02-03] MEDS ORDERED: dexAMETHasone 4 MG TAB PO SCH (08:00)
--- NOTE | 2023-02-03 08:44 | Orthopedic Progress Note ---
Date of Service February 03, 2023 Assessment & Plan (1) Status post right knee replacement: Overall she is doing fairly well. She is not having much pain in the right knee. She will be seen by physical therapy today for ambulation and range of motion exercises. She is on aspirin for DVT prophylaxis. She can be discharged home later today. She will follow-up with orthopedics in 2 weeks. Margaret Silverio was seen and examined at bedside this morning. Overall she is doing fairly well. She is not having much pain in the right knee. She has been up and ambulating to the bathroom. She has no complaints.. Review of Systems All systems reviewed & are unremarkable except as noted in HPI & below. Physical Exam On physical examination of the right knee, the dressing is clean and dry. Her leg is out full extension. She has active dorsiflexion plantarflexion of her right ankle.. Results & Data Results & Data Laboratory Results . Diagnostic Findings Postoperative x-rays of the right knee show the prosthesis to be in anatomic alignment without any evidence of fracture, screws, or loosening.. PG Care Time/CCT Total # of Minutes Spent Total Time Spent with Patient: Total time spent is greater than 50% in coordination of care (as documented) at patient's floor/unit and/or counseling patient: Coding Level of Care Code 81331 Post Operative Follow-Up Diagnoses Status post right knee replacement Z96.651
--- NOTE | 2023-02-03 08:45 | Discharge Summary ---
Date of Service February 03, 2023 Admission HPI (Per Admitting) Paz is a pleasant 72-year-old female who has been dealing with chronic worsening bilateral knee pain. Her right knee has been more painful than her left. I have been giving her some injections. The last injections did not help as much. She went on a vacation and really struggled. The conservative treatment has been failing. X-rays and clinical examination have shown worsening osteoarthritis of the right knee. After failing conservative treatm ent, she has elected proceed with a right total knee arthroplasty. Admission Exam (Per Admitting) On physical examination of the right knee, she has decreased range of motion from 5 to 120 degrees. No instability. Pain over the distal medial femoral condyle.. Principal Diagnosis Same as "Discharge Diagnosis" noted below under Discharge Instructions. Discharge Exam On physical examination of the right knee, the dressing is clean and dry. Her leg is out full extension. She has active dorsiflexion plantarflexion of her right ankle.. Discharge Data Procedures Performed Operation Date: 02/02/23 10:00 Actual Procedures p Right Total Knee Arthroplasty(Right) - Maikel Lozano DO Ordered Studies 02/02/23 05:00 US - OR guided needle placemen Routine Hospital Course (1) Status post right knee replacement: On February 02, [address] [facility] and underwent a right knee replacement without complication. She had a spinal anesthetic. Postoperatively she was started on aspirin for DVT prophylaxis and transferred to the general orthopedic floors. Her hospital course was uneventful. On postop day #1, her vital signs were stable and her pain was well controlled. She was able to participate well with physical therapy doing ambulation and range of motion exercises. She was then discharged home. She will follow-up with orthopedics in 2 weeks. PG Care Time/CCT Total # of Minutes Spent Total Time Spent with Patient: Total time spent is greater than 50% in coordination of care (as documented) at patient's floor/unit and/or counseling patient: Discharge Plan Discharge Items Patient Disposition: Home - Home Health Services Reason For Visit: Right Knee Degenerative Joint Disease Discharge Diagnosis: Right knee replacement Activity: As commented below Non-emergency contact: Surgeon Call non-emergency contact if: your wound has increased redness and your wound has increased drainage Follow-up/Referrals: Stef Salmon MD [Primary Care Provider] - Diet: Regular Addtl Attending Provider Instructions: Activity and Therapy Recommendations: * If you are using [facility] then therapy will be provided at your home until they feel you have accomplished all of your goals. * If you are using [facility] then Physical Therapy will be provided until they feel you are ready to start Outpatient Physical Therapy. * If you are not using home therapy then Outpatient Physical Therapy should start about 3-5 days from your day of surgery. Therapy will last about 6-10 weeks * It is important not to put a pillow under your knee when you are relaxing or sleeping. It is just as important to make sure you are getting your knee per fectly straight as it is to regain your knee bend. * You were shown a series of exercises in the hospital. Do these exercises three times each day including the exercises you were shown in physical therapy. * Get up and walk several times each day. For the first four weeks, try not to stand or walk for more than one hour at a time. If you do stand or walk for more than one hour, you will not hurt anything, but your leg will likely swell. * As you feel comfortable, you may change from the walker or crutches to a cane and then to independent walking. Medications: * Narcotic You will likely be sent home from the hospital with a prescription for the narcotic pain medication that worked best throughout your stay. * Aspirin Most patients will be required to take Aspirin 81mg twice a day for 6 weeks after surgery. This is obtained [id number] and a prescription is not necessary. * Other medications may be prescribed for specific circumstances. If you have any questions, please call the office at . * Resume previous home medications unless otherwise instructed TEDs/Elastic Stockings: The white elastic stockings help limit swelling and prevent blood clots from forming in your legs.~ The more you wear them, the more they work. Wear them for six weeks. Dressing Care: The dressing can be changed after physical therapy on postop day #1. Daily dry dressing changes for a few days, especially if the incision is still draining some. If the incision is not draining then you may leave the royal open to air. If there is a little bit of drainage or if the royal are getting stuck on your clothing then cover the incision with a dry dressing. The royal will be removed at your 2 week follow-up appointment. Showering: You may shower 5 days from the day of surgery as long as the incision is no longer draining. You may shower with the royal exposed. Let soapy water run over the royal and pat them dry. Do not scrub or soak the incision. Things To Watch For: * Drainage from the incision site that occurs more than one week after your surgery. * Increased redness at the incision site. * Fever above 102 degrees Fahrenheit. * Unusual chest pain or shortness of breath. * Call [facility] at with any of the above problems Follow-Up Visit: Follow-up with Dr. Lozano's PA (Maikel Brown) 2-3 weeks after your day of surgery. He will remove your royal and answer any questions. If you have any additional questions or concerns, Dr Lozano is usually in the office at the same time and will be available An appointment was probably scheduled when you signed-up for surgery in the office. If you have any questions call Office Instructions: More detailed instructions as well as Frequently Asked Questions were provided in a folder by our office when you signed-up for surgery. Please review these instructions when you get home. If you have any further questions or concerns, please feel free to call the office at [phone] Pending Studies at Discharge: No Stand-Alone Forms: My [facility], Smoking Cessation Medications and DC Order Prescriptions: New aspirin 81 mg Tablet,Delayed Release (Dr/Ec) 81 mg PO BID 42 Days Qty: 84 0RF oxycodone-acetaminophen 5-325 mg tablet 1 tab PO Q6H PRN (Reason: pain) Qty: 30 0RF Continued estradiol 10 mcg tablet 10 mcg vaginal DAILY Qty: 90 3RF Patient Comments: EVERY DAY FOR 3 MONTHS THEN TWICE A WEEK AFTER, CURRENTLY STILL IN THE 3 MONTH EVERY DAY Rx Instructions: place 1 tablet vaginally at bedtime nightly for 3 months then twice weekly thereafter levothyroxine [Synthroid] 100 mcg tablet 100 mcg PO QAM Patient Comments: BRAND NAME.NOT GENERIC. Rx Instructions: MUST BE BRAND NAME olmesartan [Benicar] 20 mg tablet 20 mg PO HS rosuvastatin 10 mg tablet 5 mg PO QAM Rx Instructions: TAKES MON, WED, & FRI AT HS. PER DC LIST ascorbate calcium (vitamin C) 500 mg tablet 500 mg PO QDL multivitamin [Daily Multi-Vitamin] Tablet 1 tab PO QDL cholecalciferol (vitamin D3) 50 mcg (2,000 unit) capsule 50 mcg PO QDL glucosamine sulfate [Glucosamine] 500 mg tablet 500 mg PO BID Rx Instructions: administer with a meal cyanocobalamin (vitamin B-12) [Vitamin B-12] 2,000 mcg tablet extended release 1,000 mcg PO QDL Rx Instructions: FROM DC LIST 11/17/21 amlodipine 10 mg tablet 5 mg PO HS krill oil 1 tab PO DAILY celecoxib [Celebrex] 200 mg Capsule 200 mg PO BID calcium carbonate [Calcium 600] 600 mg calcium (1,500 mg) Tablet 600 mg PO QDL vitamin E 400 unit Capsule 400 unit PO QDL magnesium oxide 400 mg magnesium Tablet 400 mg PO HS ferrous sulfate 325 mg (65 mg iron) Tablet,Delayed Release (Dr/Ec) 325 mg PO BIDM Qty: 60 0RF Krames/Other Patient Handouts: High Blood Sugar (Hyperglycemia), Hypoglycemia (Low Blood Sugar), Managing Type 2 Diabetes Admission Data Admit Date/Time: 02/02/23 12:35 Attending Provider: Maikel Lozano Admit Provider: Maikel Lozano Primary Care Provider: Stef Salmon
[2023-02-03] MEDS: ASPIRIN 81 MG ECTAB PO SCH (08:46)
[2023-02-03] MEDS: DOCUSATE SODIUM 100 MG CAP PO SCH (08:48)
[2023-02-03] MEDS: GLUCOSAMINE SULFATE 500 MG CAP PO SCH (08:48)
[2023-02-03] MEDS ORDERED: LEVOTHYROXINE SODIUM 100 MCG TABLET PO SCH (09:00)
[2023-02-03] MEDS ORDERED: MULTIVITAMIN TAB PO SCH (09:00)
[2023-02-03] MEDS ORDERED: NON-FORMULARY MEDICATION (Multivitamin [Daily Multi-Vitamin] tablet) PO SCH (11:30)
== END 2023-02-03 14:34 | disposition home or self-care (01) ==
LOC: ASU 07:02 → 3E 07:02

== ENCOUNTER 2023-05-04 06:24 | Observation (INO) ==
--- NOTE | 2023-04-30 10:46 | Anesthesiology Consultation ---
Date of Service April 30, 2023 Assessment & Plan (1) Encounter for pre-operative examination: - COVID screening: Per assessment on 04/30: No known COVID-19 positive contacts or current COVID-19 related symptoms. No recent Covid positive test result. - Outpatient joint assessment: Pt currently scheduled for inpatient pathway. If surgeon requests review for outpatient joint pathway, patient is an acceptable candidate for outpatient joint program from anesthesia standpoint pending surgeon's office assessment that patient is motivated, has good support and completes Same Day Joint Program preop requirements. - S/P Right TKA (02/02/23): SAB x1 attempt + PNB at [facility]. No issues noted per post-op anesthesia progress note. Chart Review Chart Review: Acceptable Risk for Surgery and Patient NOT seen in Pre Admission Testing History Surgery Operation Date: 05/04/23 07:00 Proposed Procedures p Left Total Knee Arthroplasty - Maikel Lozano, Height/Weight Height: 4 ft 10 in Weight: 76.113 kg Allergies Allergy/AdvReac Type Severity Reaction Status Date / Time Sulfa (Sulfonamide Allergy Unknown Rash Verified 04/30/23 10:08 Antibiotics) benazepril AdvReac Unknown Cough Verified 04/30/23 10:08 lisinopril AdvReac Unknown Cough Verified 04/30/23 10:08 Medications Home Medications Medication Instructions Recorded Confirmed Last Taken ascorbate calcium (vitamin C) 500 500 mg PO QDL 05/25/21 04/30/23 02/01/23 14:00 mg tablet cholecalciferol (vitamin D3) 50 50 mcg PO QDL 05/25/21 04/30/23 11/14/21 mcg (2,000 unit) capsule glucosamine sulfate 500 mg tablet 500 mg PO BID 05/25/21 04/30/23 2 Weeks Ago (Glucosamine) ~01/19/23 levothyroxine 100 mcg tablet 100 mcg PO QAM 05/25/21 04/30/23 02/02/23 06:30 (Synthroid) multivitamin (Daily Multi-Vitamin 1 tab PO QDL 05/25/21 04/30/23 02/01/23 14:00 tablet) olmesartan 20 mg tablet (Benicar) 20 mg PO HS 05/25/21 04/30/23 02/01/23 19:30 rosuvastatin 10 mg tablet 5 mg PO QAM 05/25/21 04/30/23 02/02/23 06:30 calcium carbonate 600 mg calcium 600 mg PO QDL 11/15/21 04/30/23 02/01/23 14:00 (1,500 mg) tablet (Calcium) magnesium oxide 400 mg PO HS 11/15/21 04/30/23 02/01/23 19:30 vitamin E 268 mg (400 unit) capsule 400 unit PO QDL 11/15/21 04/30/23 2 Weeks Ago ~01/19/23 ferrous sulfate 325 mg (65 mg 325 mg PO BIDM #60 tabs 11/17/21 04/30/23 02/01/23 19:30 iron) tablet,delayed release amlodipine 10 mg tablet 5 mg PO HS 08/23/22 04/30/23 02/01/23 19:30 cyanocobalamin (vitamin B-12) 1,000 mcg PO QDL 08/23/22 04/30/23 02/01/23 14:00 2,000 mcg tablet,extended release (Vitamin B-12 ER) estradiol 10 mcg vaginal tablet 10 mcg vaginal DAILY #90 tabs 11/07/22 04/30/23 01/31/23 krill oil 1 tab PO DAILY 01/01/23 04/30/23 2 Weeks Ago ~01/19/23 celecoxib 200 mg capsule (Celebrex) 200 mg PO BID 02/02/23 04/30/23 5 Days Ago ~01/28/23 Past Medical History Medical History Acid reflux Hx Arthritis Back ache Chronic, occasional Mild-moderate degenerative changes thoracic spine Degenerative arthritis High cholesterol History of anemia 2021- required blood transfusion/iron infusions, unremarkable workup (including labs/egd/colonoscopy) per patient, no etiology found per patient History of esophageal dilatation HTN (hypertension) Hypothyroid Obesity Pre-diabetes Past Family History Family History Grandmother (Paternal) Colorectal cancer Grandfather (Maternal) Colorectal cancer Grandmother (Maternal) Diabetes Mother Hypertension Stroke syndrome Sister Breast cancer two sisters Denies family history of Ovarian cancer Prostate cancer Past Surgical History Surgical History Bartholin cyst Removed Hiatal hernia Hiatal hernia repair ([facility], 11/2022) History of Surgically induced by D&E History of amputation of hallux Hallux valgus (bunion) correction History of ankle surgery History of appendectomy History of colonoscopy History of endoscopy History of gynecologic surgery Posterior repair History of tonsillectomy History of total right knee replacement 02/02/23 [facility] Social History Smoking Status: Never smoker Do You Dip or Chew Tobacco: No Hx Alcohol Use: Yes alcohol intake frequency: holidays/special occasions only Hx Substance Use: No substance use type: does not use Lab Results Anesthesia Preop Results Results Anesthesia Widget: WBC 6.59 K/ul (4.8-10.8) 03/28/23 Hgb 14.9 g/dl (12.0-16.0) 03/28/23 Hct 47.5 % (37.0-47.0) H 03/28/23 Plt 327 K/uL (130-400) 03/28/23 Na 142 mmol/L (136-145) 03/28/23 K 4.0 mmol/L (3.5-5.1) 03/28/23 Cl 107 mmol/L (98-107) 03/28/23 CO2 27 mmol/L (21-32) 03/28/23 BUN 14 mg/dl (6-23) 03/28/23 Creat 0.66 mg/dl (0.6-1.2) 03/28/23 Glucose Level 102 mg/dl (70-99(Fasting)) H 03/28/23 PT 10.5 Seconds (9.0-12.0) 03/28/23 PTT 29.3 Seconds (21.0-31.0) 03/28/23 INR 1.0 (0.9-1.1) 03/28/23 Blood Type O Positive 03/28/23 Antibody Screen NEGATIVE 03/28/23 Testing Electrocardiogram Date: 10/13/22 Findings: + NSR @ (80) Chest X-Ray Date: 01/01/23 Findings: + NAD Echocardiogram Date: 11/16/21 EF 65-70%. Basal septum is thickened and angulated consistent with sigmoid septum. LV wall motion is normal. No significant valvular disease.
--- NOTE | 2023-05-03 06:55 | History & Physical Report ---
Date of Service May 03, 2023 Assessment & Plan (1) Osteoarthritis of left knee: We will proceed with a left total knee arthroplasty. Postoperatively she will be started on aspirin for DVT prophylaxis and kept overnight in the hospital for postop medical management. She plans to go to [facility] discharge. History of Present Illness Chief Complaint: Osteoarthritis of the left knee. Primary Care Provider: Stef Salmon MD Paz is a pleasant 72-year-old female who is been doing with chronic increasing left knee pain. X-rays and clinical examination were diagnostic for advanced osteoarthritis of the left knee. I did a right knee replacement on her about 3 months ago and she is done very well with that. She like to proceed with a left total knee arthroplasty.. Allergies Allergy/AdvReac Type Severity Reaction Status Date / Time Sulfa (Sulfonamide Allergy Unknown Rash Verified 04/30/23 10:08 Antibiotics) benazepril AdvReac Unknown Cough Verified 04/30/23 10:08 lisinopril AdvReac Unknown Cough Verified 04/30/23 10:08 Home Medications Medication Instructions Recorded Confirmed Type ascorbate calcium (vitamin C) 500 500 mg PO QDL 05/25/21 04/30/23 History mg tablet cholecalciferol (vitamin D3) 50 50 mcg PO QDL 05/25/21 04/30/23 History mcg (2,000 unit) capsule glucosamine sulfate 500 mg tablet 500 mg PO BID 05/25/21 04/30/23 History (Glucosamine) levothyroxine 100 mcg tablet 100 mcg PO QAM 05/25/21 04/30/23 History (Synthroid) multivitamin (Daily Multi-Vitamin 1 tab PO QDL 05/25/21 04/30/23 History tablet) olmesartan 20 mg tablet (Benicar) 20 mg PO HS 05/25/21 04/30/23 History rosuvastatin 10 mg tablet 5 mg PO QAM 05/25/21 04/30/23 History calcium carbonate 600 mg calcium 600 mg PO QDL 11/15/21 04/30/23 History (1,500 mg) tablet (Calcium) magnesium oxide 400 mg PO HS 11/15/21 04/30/23 History vitamin E 268 mg (400 unit) capsule 400 unit PO QDL 11/15/21 04/30/23 History ferrous sulfate 325 mg (65 mg 325 mg PO BIDM #60 tabs 11/17/21 04/30/23 Rx iron) tablet,delayed release amlodipine 10 mg tablet 5 mg PO HS 08/23/22 04/30/23 History cyanocobalamin (vitamin B-12) 1,000 mcg PO QDL 08/23/22 04/30/23 History 2,000 mcg tablet,extended release (Vitamin B-12 ER) estradiol 10 mcg vaginal tablet 10 mcg vaginal DAILY #90 tabs 11/07/22 04/30/23 Rx krill oil 1 tab PO DAILY 01/01/23 04/30/23 History celecoxib 200 mg capsule (Celebrex) 200 mg PO BID 02/02/23 04/30/23 History Past Med/Surg History Medical History Acid reflux Hx Arthritis Back ache Chronic, occasional Mild-moderate degenerative changes thoracic spine Degenerative arthritis High cholesterol History of anemia 2021- required blood transfusion/iron infusions, unremarkable workup (including labs/egd/colonoscopy) per patient, no etiology found per patient History of esophageal dilatation HTN (hypertension) Hypothyroid Obesity Pre-diabetes Surgical History Bartholin cyst Removed Hiatal hernia Hiatal hernia repair ([facility], 11/2022) History of Surgically induced by D&E History of amputation of hallux Hallux valgus (bunion) correction History of ankle surgery History of appendectomy History of colonoscopy History of endoscopy History of gynecologic surgery Posterior repair History of tonsillectomy History of total right knee replacement 02/02/23 [facility] Family History Grandmother (Paternal) Colorectal cancer Grandfather (Maternal) Colorectal cancer Grandmother (Maternal) Diabetes Mother Hypertension Stroke syndrome Sister Breast cancer two sisters Denies family history of Ovarian cancer Prostate cancer Social History Smoking Status: Never smoker Second Hand Exposure: No; Do You Dip or Chew Tobacco: No; Hx Alcohol Use: Yes Hx Substance Use: No Preferred Language: Persian Communication Ability: Effective Cigarette Tipper Required: No Beliefs That Will Affect Care: None Current Living Situation: Spouse Feels Safe at Home: Yes Assistive Devices: Glasses and Walker Review of Systems All systems reviewed & are unremarkable except as noted in HPI & below. Physical Exam . Constitutional WD/WN, vitals as above Eyes PERRL, conjunctivae normal, anicteric sclerae ENMT external ear and nose normal, oropharynx normal Neck trachea midline, no thyromegaly Respiratory normal respiratory effort, lungs clear to auscultation Cardiovascular RRR, no murmur, no edema Gastrointestinal (Abdomen) normal bowel sounds, soft, nontender, no hepatosplenomegaly Skin no rashes, warm and dry Psychiatric A+Ox3, euthymic affect Results & Data Results & Data Laboratory Results . Diagnostic Findings X-rays of the left knee show advanced osteoarthritis with joint space narrowing, osteophyte formation, and [id number] articulation. PG Care Time/CCT Total # of Minutes Spent Total Time Spent with Patient: Total time spent is greater than 50% in coordination of care (as documented) at patient's floor/unit and/or counseling patient: Coding Level of Care Code None Diagnoses Osteoarthritis of left knee M17.12
[~2023-05-04 06:24] MED LIST changes: +BUPIVACAINE 0.5 % 5 MG/1 ML PF 10ML VIAL ONE; -Ketorolac (*for OR use only*) 30 MG, dexAMETHasone 4 MG, KETAMINE HCL (**OR use only) 1... INFIL SCH; +ORTHO JOINT MIX INFIL SCH
--- NOTE | 2023-05-04 06:33 | History & Physical Bridge Note ---
Date of Service May 04, 2023 History & Physical Bridge Note I have examined the patient, reviewed the History & Physical and in the interval since the performance of the History & Physical I have noted the following changes of clinical significance: no changes noted
[2023-05-04] MEDS ORDERED: ORTHO JOINT ANESTHETIC ONE (07:03)
[2023-05-04] MEDS ORDERED: MIDAZOLAM HCL 1 MG/ML 2ML VIAL ONE (07:12)
[2023-05-04] MEDS ORDERED: PROPOFOL IV EMULSION 10 MG/ML 20 ML VIAL IV ONE (07:14)
[2023-05-04] MEDS ORDERED: ONDANSETRON INJ 2 MG/ML 2 ML VIAL IV PRN ×2 (07:20→12:43)
[2023-05-04] MEDS ORDERED: ATROPINE SULFATE 0.1 MG/ML 10ML SYR IV PRN (07:20)
[2023-05-04] MEDS ORDERED: fentaNYL citrate PF 100 MCG/2 ML VIAL IV PRN (07:20)
[2023-05-04] MEDS ORDERED: ePHEDrine sulfate 50 MG/ML AMP IV PRN (07:20)
--- NOTE | 2023-05-04 09:05 | Operative Report ---
PG Post Operative Report Pre & Post Diagnosis Operation Date: 05/04/23 08:00 Pre-Op Diagnosis: Left Knee Degenerative Joint Disease Post-Op Diagnosis: Left Knee Degenerative Joint Disease I identified the patient and participated in the time-out.: Yes Procedure Operation Date: 05/04/23 08:00 Actual Procedures p Left Total Knee Arthroplasty(Left) - Maikel Lozano DO Surgeon Maikel Lozano DO Entry Level Account Manager Maikel Brown PA-C Estimated Blood Loss 30 Findings Consistent with Post-Op Diagnosis Specimens Left femoral tibial bone Description of Procedure Implants used: I used a Brenda Persona total knee arthroplasty system with a size 7 narrow PS femur, D tibia, 31 oval patella, and a size 14 CPS polyethylene bearing. All components were cemented in place with Biomet cement. Paz arrived [facility] for the above procedure. She was seen in the preoperative holding area and the operative extremity was identified and signed. She was given a preoperative antibiotic, TXA, a spinal anesthetic and an adductor nerve block. She was taken back to the operating room and laid on the table in supine position. She was given basic sedation. The operative knee was then prepped and draped in sterile fashion. A timeout was done, and the patient and the operative extremity was properly identified. A midline incision was made directly over the patella. Dissection was taken down to the extensor mechanism. A midvastus arthrotomy was used. The medial retinaculum was released and the fat pad was mostly excised. The knee was flexed and the ACL, PCL, and meniscus were removed. A drill was sent down the center of the femoral canal followed by an intramedullary jen. Off that jen a distal femoral cutting block was placed. 9 mm was resected off the distal femur at 5 of valgus. A posterior referencing AP sizing guide was then placed on the distal femur. The femur measured to be a size 7. 2 drill holes were placed in 3 of external rotation. A 4-in-1 cutting block was then impacted into place. Anterior, posterior, and chamfer cuts were then made. The proximal tibia was then exposed. An external tibial alignment guide was placed. A tibial cut guide was then anchored in place and the proximal tibia was then resected. The posterior aspect of the knee was then opened up and any additional meniscus fragments and osteophytes were removed. The tibia measured to be a size D. The tibial plate was then placed in the appropriate rotation and the tibia was drilled and punched. Trial components were then placed. I used a size 14 CPS polyethylene insert. The knee was brought through a full range of motion and felt to be stable. The peg holes for the femoral component were then drilled. The patella was then everted and 9 mm was resected off the posterior aspect of the patella. The patella measured to be a size 31 oval. 3 peg holes were then drilled. A trial patella was placed. The knee was once again brought through a full range of motion and felt to be stable. Trial components were then removed. The surrounding soft tissues were injected with 100 cc of an orthopedic pain control cocktail. All components were then cemented into place with Biomet cement. The final polyethylene insert was then snapped into place. Once cement was dry the tourniquet was deflated. Hemostasis was obtained. A dilute betadyne lavage was then done for 3 minutes. The joint was then irrigated with normal saline solution. The midvastus arthrotomy was then closed with #1 Vicryl suture. The skin was closed with 2-0 Vicryl, 3-0V lock suture, and royal. A soft compressive dressing was placed. She was then transferred to a hospital bed and taken to the postanesthesia care unit in stable condition. She tolerated the procedure well. Maikel Brown PA-C, was present for the entire procedure. He was critical for patient positioning, prepping, draping, retraction exposure, wound closure and application of sterile dressing. I attest to the content of the Intraoperative Record and any orders documented therein. Any exceptions are noted below.
--- NOTE | 2023-05-04 10:54 | XRay Report ---
XR knee LT 1 or 2V routine HISTORY: 72 years-old Female Surgical Post Op left knee arthroplasty COMPARISON: 03/28/2023 TECHNIQUE: 2 views of the left knee FINDINGS: Total joint arthroplasty with patellar resurfacing. Anterior midline skin royal are noted along wit h expected postsurgical soft tissue swelling with deep tissue air. No acute fracture or unexpected op aque foreign body. IMPRESSION: Total joint arthroplasty with expected postoperative changes. ACT 112: Negative or not required by law. The above report was generated using voice recognition software. It may contain grammatical, syntax o r spelling errors. Electronically signed by: Jarvis Coronado M.D. 05/04/2023 10:52 AM
[2023-05-04] MEDS ORDERED: HYDROmorphone INJ 0.5 MG/0.5 ML SYR IV PRN (12:43)
[2023-05-04] MEDS ORDERED: MAGNESIUM HYDROXIDE SUSP 30 ML UDC PO PRN (12:43)
[2023-05-04] MEDS ORDERED: bisacodyL 10 MG SUPP PR PRN (12:43)
[2023-05-04] MEDS ORDERED: NALOXONE HCL 0.4 MG/1 ML VIAL/CARP IV PRN (12:43)
[2023-05-04] MEDS ORDERED: METOCLOPRAMIDE HCL INJ 5 MG/ML 2 ML VIAL IV PRN (12:43)
[2023-05-04] MEDS ORDERED: oxyCODONE HCL IR 5 MG TAB (IMMEDIATE RELEASE) PO PRN (12:43)
--- NOTE | 2023-05-04 13:13 | Anesthesiology Progress Note ---
Date of Service May 04, 2023 Anesthesia Post Procedure Vital Signs Vital Signs: Temp Pulse Pulse Resp BP Pulse Ox O2 Del Method 05/04/23 12:58 98.1 F 77 19 129/80 95 Room Air 05/04/23 12:20 98.2 F 20 131/76 95 Room Air 05/04/23 12:10 73 18 117/61 96 Nasal Cannula 05/04/23 11:55 70 17 123/66 96 Nasal Cannula 05/04/23 11:40 68 15 117/60 96 Nasal Cannula 05/04/23 11:25 97.5 F L 66 13 119/68 96 Nasal Cannula 05/04/23 11:15 65 15 120/61 96 Nasal Cannula 05/04/23 11:05 63 18 117/61 96 Nasal Cannula 05/04/23 10:55 64 13 112/62 96 Nasal Cannula 05/04/23 10:45 63 13 122/60 96 Nasal Cannula 05/04/23 10:35 65 14 122/65 96 Nasal Cannula 05/04/23 10:25 65 17 125/68 95 Nasal Cannula 05/04/23 10:15 64 22 128/65 97 Nasal Cannula 05/04/23 10:05 66 15 129/66 94 Nasal Cannula 05/04/23 09:45 68 17 131/75 94 Room Air 05/04/23 09:55 63 15 128/67 95 Nasal Cannula 05/04/23 09:35 71 16 137/73 100 Oxymask 05/04/23 09:28 97.2 F L 74 16 125/80 100 Oxymask 05/04/23 06:45 98.2 F 88 18 153/77 H 94 Room Air O2 Flow Rate 05/04/23 12:58 05/04/23 12:20 05/04/23 12:10 2 05/04/23 11:55 2 05/04/23 11:40 2 05/04/23 11:25 2 05/04/23 11:15 2 05/04/23 11:05 2 05/04/23 10:55 2 05/04/23 10:45 2 05/04/23 10:35 2 05/04/23 10:25 2 05/04/23 10:15 2 05/04/23 10:05 2 05/04/23 09:45 05/04/23 09:55 2 05/04/23 09:35 4 05/04/23 09:28 10 05/04/23 06:45 Transfer of Care Handoff Completed per policy Notes Mental Status: alert / awake / arousable and participated in evaluation Patient Amnestic to Procedure: Yes Nausea / Vomiting: adequately controlled Pain: adequately controlled Airway Patency, RR, SpO2: stable & adequate BP & HR: stable & adequate Hydration State: stable & adequate Neuraxial Anesthesia: was administered and sensory block is resolving Anesthetic Complications: no major complications apparent and Pt Satisfied with anesthetic care
[2023-05-04] MEDS: SODIUM CHLORIDE 0.9% 1000ML 1,000 ML IV SCH ×2 (13:47→23:26)
[2023-05-04] MEDS: KETOROLAC TROMETHAMINE 15 MG/ML VIAL IV SCH ×2 (14:09→19:40)
[2023-05-04] MEDS: ceFAZolin 2000MG 2,000 MG/15 ML SYR IV SCH ×2 (15:42→23:27)
[2023-05-04] MEDS: FERROUS SULFATE 325 MG TAB PO SCH (16:58)
[2023-05-04] MEDS ORDERED: LOSARTAN POTASSIUM 50 MG TAB PO SCH (21:00)
[2023-05-04] MEDS ORDERED: ROSUVASTATIN CALCIUM 5 MG TAB PO SCH (21:00)
[2023-05-04] MEDS ORDERED: MAGNESIUM OXIDE 400 MG TAB PO SCH (21:00)
[2023-05-04] MEDS ORDERED: amLODIPine BESYLATE 5 MG TAB PO SCH (21:00)
[2023-05-04] MEDS: ASPIRIN 81 MG ECTAB PO SCH (21:18)
[2023-05-04] MEDS: DOCUSATE SODIUM 100 MG CAP PO SCH (21:19)
[2023-05-04] MEDS: ACETAMINOPHEN 500 MG TAB PO SCH (21:19)
[2023-05-04] MEDS: SENNA 8.6 MG TAB PO SCH ×2 (21:19→21:22)
[2023-05-05] MEDS: KETOROLAC TROMETHAMINE 15 MG/ML VIAL IV SCH ×2 (02:26→08:23)
[2023-05-05] MEDS: ACETAMINOPHEN 500 MG TAB PO SCH (06:22)
[2023-05-05] MEDS ORDERED: LEVOTHYROXINE SODIUM 100 MCG TABLET PO SCH (06:30)
[2023-05-05] MEDS ORDERED: dexAMETHasone 4 MG TAB PO SCH (08:00)
--- NOTE | 2023-05-05 08:15 | Orthopedic Progress Note ---
Date of Service May 05, 2023 Assessment & Plan (1) Status post left knee replacement: Overall she is doing very well. She is not having much pain in the left knee. She will be seen by physical therapy today for ambulation and range of motion exercises. The nursing staff can change her dressing after physical therapy. She is on aspirin for DVT prophylaxis. She can be discharged home later today. She will follow-up with orthopedics in 2 weeks. Margaret Mullen was seen and examined at bedside this morning. Overall she is doing fairly well. She is not having much pain in the left knee. She has been up and ambulating to the bathroom. She has no complaints.. Review of Systems All systems reviewed & are unremarkable except as noted in HPI & below. Physical Exam On physical examination of the left knee, the dressing is clean and dry. Her leg is out full extension. She has active dorsiflexion and plantarflexion of her left ankle.. Results & Data Results & Data Laboratory Results . Diagnostic Findings Postoperative x-rays of the left knee show the prosthesis to be in anatomic alignment without any evidence of fracture, desiccation, or loosening.. PG Care Time/CCT Total # of Minutes Spent Total Time Spent with Patient: Total time spent is greater than 50% in coordination of care (as documented) at patient's floor/unit and/or counseling patient: Coding Level of Care Code 55734 Post Operative Follow-Up Diagnoses Status post left knee replacement Z96.652
--- NOTE | 2023-05-05 08:17 | Discharge Summary ---
Date of Service May 05, 2023 Admission HPI (Per Admitting) Paz is a pleasant 72-year-old female who is been doing with chronic increasing left knee pain. X-rays and clinical examination were diagnostic for advanced osteoarthritis of the left knee. I did a right knee replacement on her about 3 months ago and she is done very well with that. She like to proceed with a left total knee arthroplasty.. Admission Exam (Per Admitting) . Principal Diagnosis Same as "Discharge Diagnosis" noted below under Discharge Instructions. Discharge Exam On physical examination of the left knee, the dressing is clean and dry. Her leg is out full extension. She has active dorsiflexion and plantarflexion of her left ankle.. Discharge Data Procedures Performed Operation Date: 05/04/23 08:00 Actual Procedures p Left Total Knee Arthroplasty(Left) - Maikel Lozano DO Ordered Studies 05/04/23 05:00 US - OR guided needle placemen Routine Hospital Course (1) Status post left knee replacement: On May 04, 2023 Paz arrived at [facility] and underwent a knee replacement without complication. She had a spinal anesthetic. Postoperatively she was started on aspirin for DVT prophylaxis and transferred to the general orthopedic floors. Her hospital course was uneventful. On postop day #1, her vital signs were stable and her pain was well controlled. She was able to participate well with physical therapy doing ambulation and range of motion exercises. She was then discharged home. She will follow-up with orthopedics in 2 weeks. PG Care Time/CCT Total # of Minutes Spent Total Time Spent with Patient: Total time spent is greater than 50% in coordination of care (as documented) at patient's floor/unit and/or counseling patient: Discharge Plan Discharge Items Patient Disposition: Home - Home Health Services Reason For Visit: Left Knee Degenerative Joint Disease Discharge Diagnosis: Status post left knee replacement Activity: Per Instructions section Non-emergency contact: Surgeon Call non-emergency contact if: your wound has increased redness and your wound has increased drainage Follow-up/Referrals: Stef Salmon MD [Primary Care Provider] - Diet: Regular Addtl Attending Provider Instructions: Activity and Therapy Recommendations: * If you are using [facility] then therapy will be provided at your home until they feel you have accomplished all of your goals. * If you are using [facility] then Physical Therapy will be provided until they feel you are ready to start Outpatient Physical Therapy. * If you are not using home therapy then Outpatient Physical Therapy should start about 3-5 days from your day of surgery. Therapy will last about 6-10 weeks * It is important not to put a pillow under your knee when you are relaxing or sleeping. It is just as important to make sure you are getting your knee perfectly straight as it is to regain your knee bend. * You were shown a series of exercises in the hospital. Do these exercises three times each day including the exercises you were shown in physical therapy. * Get up and walk several times each day. For the first four weeks, try not to stand or walk for more than one hour at a time. If you do stand or walk for more than one hour, you will not hurt anything, but your leg will likely swell. * As you feel comfortable, you may change from the walker or crutches to a cane and then to independent walking. Medications: * Narcotic You will likely be sent home from the hospital with a prescription for the narcotic pain medication that worked best throughout your stay. * Aspirin Most patients will be required to take Aspirin 81mg twice a day for 6 weeks after surgery. This is obtained [id number] and a prescription is not necessary. * Other medications may be prescribed for specific circumstances. If you have any questions, please call the office at . * Resume previous home medications unless otherwise instructed TEDs/Elastic Stockings: The white elastic stockings help limit swelling and prevent blood clots from forming in your legs.~ The more you wear them, the more they work. Wear them for six weeks. Dressing Care: The dressing can be changed after physical therapy on postop day #1. Daily dry dressing changes for a few days, especially if the incision is still draining some. If the incision is not draining then you may leave the royal open to air. If there is a little bit of drainage or if the royal are getting stuck on your clothing then cover the incision with a dry dressing. The royal will be removed at your 2 week follow-up appointment. Showering: You may shower 5 days from the day of surgery as long as the incision is no longer draining. You may shower with the royal exposed. Let soapy water run over the royal and pat them dry. Do not scrub or soak the incision. Things To Watch For: * Drainage from the incision site that occurs more than one week after your surgery. * Increased redness at the incision site. * Fever above 102 degrees Fahrenheit. * Unusual chest pain or shortness of breath. * Call [facility] at with any of the above problems Follow-Up Visit: Follow-up with Dr. Lozano's PA (Maikel Brown) 2-3 weeks after your day of surgery. He will remove your royal and answer any questions. If you have any additional questions or concerns, Dr Lozano is usually in the office at the same time and will be available An appointment was probably scheduled when you signed-up for surgery in the office. If you have any questions call Office Instructions: More detailed instructions as well as Frequently Asked Questions were provided in a folder by our office when you signed-up for surgery. Please review these instructions when you get home. If you have any further questions or concerns, please feel free to call the office at [phone] Pending Studies at Discharge: No Stand-Alone Forms: My [facility] [employer], Smoking Cessation Medications and DC Order Prescriptions: New oxycodone-acetaminophen [Percocet] 5-325 mg tablet 1 tab PO Q6H PRN (Reason: pain) Qty: 30 0RF aspirin 81 mg Tablet,Delayed Release (Dr/Ec) 81 mg PO BID 42 Days Qty: 84 0RF Continued estradiol 10 mcg tablet 10 mcg vaginal DAILY Qty: 90 3RF Patient Comments: EVERY DAY FOR 3 MONTHS THEN TWICE A WEEK AFTER, CURRENTLY STILL IN THE 3 MONTH EVERY DAY Rx Instructions: place 1 tablet vaginally at bedtime nightly for 3 months then twice weekly thereafter levothyroxine [Synthroid] 100 mcg tablet 100 mcg PO QAM Patient Comments: BRAND NAME.NOT GENERIC. Rx Instructions: MUST BE BRAND NAME olmesartan [Benicar] 20 mg tablet 20 mg PO HS rosuvastatin 10 mg tablet 5 mg PO QPM Rx Instructions: TAKES MON, WED, & FRI AT HS. PER DC LIST ascorbate calcium (vitamin C) 500 mg tablet 500 mg PO QDL multivitamin [Daily Multi-Vitamin] Tablet 1 tab PO QDL cholecalciferol (vitamin D3) 50 mcg (2,000 unit) capsule 50 mcg PO QDL glucosamine sulfate [Glucosamine] 500 mg tablet 500 mg PO BID Rx Instructions: administer with a meal cyanocobalamin (vitamin B-12) [Vitamin B-12] 2,000 mcg tablet extended release 1,000 mcg PO QDL Rx Instructions: FROM DC LIST 11/17/21 amlodipine 10 mg tablet 5 mg PO HS celecoxib [Celebrex] 200 mg Capsule 200 mg PO BID calcium carbonate [Calcium 600] 600 mg calcium (1,500 mg) Tablet 600 mg PO QDL vitamin E 400 unit Capsule 400 unit PO QDL magnesium oxide 400 mg magnesium Tablet 400 mg PO HS ferrous sulfate 325 mg (65 mg iron) Tablet,Delayed Release (Dr/Ec) 325 mg PO BIDM Qty: 60 0RF Admission Data Admit Date/Time: 05/04/23 09:29 Attending Provider: Maikel Lozano Admit Provider: Maikel Lozano Primary Care Provider: Stef Salmon
[2023-05-05] MEDS: ASPIRIN 81 MG ECTAB PO SCH (08:23)
[2023-05-05] MEDS: DOCUSATE SODIUM 100 MG CAP PO SCH (08:23)
[2023-05-05] MEDS: FERROUS SULFATE 325 MG TAB PO SCH (08:54)
[2023-05-05] MEDS ORDERED: ESTRADIOL 10 MCG PV SCH (09:00)
[2023-05-05] MEDS ORDERED: MULTIVITAMIN TAB PO SCH (09:00)
== END 2023-05-05 11:47 | disposition home health service (06) ==
LOC: ASU 06:24 → 3N 06:24
DX: Z88.2 Allergy status to sulfonamides; M65.9 Synovitis and tenosynovitis, unspecified; Z79.890 Hormone replacement therapy; Z88.8 Allergy status to other drugs, medicaments and biological substances; M17.12 Unilateral primary osteoarthritis, left knee; Z79.1 Long term (current) use of non-steroidal anti-inflammatories (NSAID); Z79.899 Other long term (current) drug therapy